=== PATIENT | male | born 1940 | race Caucasian/White ===

== ENCOUNTER 2017-07-08 09:45 | Inpatient (IN) | payer MEDICARE, BC ==
[2017-07-08] MEDS ORDERED: Aspirin 81 MG Tab.Chew PO ONE (09:47)
--- NOTE | 2017-07-08 09:49 | EDM.PDOC ---
ED HPI GENERAL MEDICAL PROBLEM - General Stated Complaint: CHEST PAIN Time Seen by Provider: 07/08/17 09:48 Source of Information: Reports: Patient - History of Present Illness INITIAL COMMENTS - FREE TEXT/NARRATIVE: HISTORY AND PHYSICAL: History of present illness: [Patient presents with history of hypotension in the a.m. he measures his blood pressures at home 70/40 on home equipment today. He D was concerned but went to breakfast with one of his friends he had a syncopal episode of which is had several syncopal episodes over the last 3-5 days. Patient is clinically dehydrated with skin tenting he does not drink any water at home he prefers to drink coffee as well as alcoholic beverages. Currently no fever nausea vomiting diarrhea constipation shortness breath headache dizziness palpitation no bowel or urine symptoms He has had some intermittent chest pain over the last 3 days and generalized weakness which improved with fluid hydration ] Review of systems: As per history of present illness and below otherwise all systems reviewed and negative. Past medical history: As per history of present illness and as reviewed below otherwise noncontributory. Surgical history: As per history of present illness and as reviewed below otherwise noncontributory. Social history: No reported history of drug or alcohol abuse. Family history: As per history of present illness and as reviewed below otherwise noncontributory. Physical exam: HEENT: Atraumatic, normocephalic, pupils reactive, negative for conjunctival pallor or scleral icterus, mucous membranes moist, throat clear, neck supple, nontender, trachea midline. Lungs: Clear to auscultation, breath sounds equal bilaterally, chest nontender. Heart: S1S2, regular, negative for clicks, rubs, or JVD. Abdomen: Soft, nondistended, nontender. Negative for masses or hepatosplenomegaly. Negative for costovertebral tenderness. Pelvis: Stable nontender. Genitourinary: Deferred. Rectal: Deferred. Extremities: Atraumatic, negative for cords or calf pain. Neurovascular unremarkable. Neuro: Awake, alert, oriented. Cranial nerves II through XII unremarkable. Cerebellum unremarkable. Motor and sensory unremarkable throughout. Exam nonfocal. Diagnostics: []Lab as below EKG Chest [address] no contrast abd/pelvis w contrast Therapeutics: []Aspirin 324 mg chewable 1 L normal saline bolus Impression: dehydration syncopal episodes on doxasosin []abdominal pain h/o prostate ca -followed by urology in [place] ...dr. Tomas Definitive disposition and diagnosis as appropriate pending reevaluation and review of above. Epigastric Pain Score (Numeric/FACES): 5 - Related Data Allergies Allergy/AdvReac Type Severity Reaction Status Date / Time codeine Allergy Nausea and Verified 07/08/17 10:12 Vomiting Home Meds: Home Meds Omeprazole 40 mg PO DAILY 08/08/15 [History] Albuterol Sulfate [Proair Hfa] 2 inhalation PO ASDIRECTED PRN 09/20/15 [History] Aspirin [Adult Low Dose Aspirin EC] 81 mg PO DAILY 09/20/15 [History] Finasteride 5 mg PO DAILY 07/08/17 [History] Tamsulosin HCl 0.4 mg PO DAILY 07/08/17 [History] Past Medical History Cardiovascular History: Reports: Other (See Below) Other Cardiovascular History: pericarditis Respiratory History: Reports: Asthma Other Respiratory History: uses inhaler Gastrointestinal History: Reports: GERD, Hiatal Hernia Genitourinary History: Reports: Prostate Disorder Other Genitourinary History: hx of BPH Musculoskeletal History: Reports: Back Pain, Chronic Oncologic (Cancer) History: Reports: Basal Cell Carcinoma - Past Surgical History Cardiovascular Surgical History: Reports: Percutaneous Transluminal Angioplasty Dermatological Surgical History: Reports: Other (See Below) Social & Family History - Tobacco Use Smoking Status *Q: Never Smoker Years of Tobacco use: 20 Used Tobacco, but Quit: Yes - Recreational Drug Use Recreational Drug Use: No Drug Use in Last 12 Months: No ED ROS GENERAL - Review of Systems Review Of Systems: ROS reveals no pertinent complaints other than HPI. ED EXAM, GENERAL - Physical Exam Exam: See Below Course - Vital Signs Last Recorded V/S: Last Vital Signs Temp 36.7 C 07/08/17 11:19 Pulse 56 L 07/08/17 11:19 Resp 14 07/08/17 11:19 BP 142/84 H 07/08/17 11:19 Pulse Ox 96 07/08/17 11:19 Orthostatic Blood Pressure [ 170/84 Standing] Orthostatic Blood Pressure [ 162/87 Sitting] Orthostatic Blood Pressure [ 156/81 Supine] - Orders/Labs/Meds Orders: Active Orders 24 hr Category Date Time Status EKG Documentation Completion [RC] STAT Care 07/08/17 09:47 Active Orthostatic Vital Signs [RC] ASDIRECTED Care 07/08/17 10:53 Active Sodium Chloride 0.9% [Normal Saline] 1,000 ml Med 07/08/17 11:15 Active IV ASDIRECTED Medication Orders Sodium Chloride (Normal Saline) 1,000 mls @ 999 mls/hr IV ASDIRECTED JO Last Admin: 07/08/17 11:15 Dose: 999 mls/hr Labs: Laboratory Tests 07/08/17 07/08/17 07/08/17 Range/Units 09:56 09:56 09:56 WBC 5.49 (4.0-11.0) K/uL RBC 5.21 (4.50-5.90) M/uL Hgb 16.5 (13.0-17.0) g/dL Hct 48.0 (38.0-50.0) % MCV 92.1 (80.0-98.0) fL MCH 31.7 (27.0-32.0) pg MCHC 34.4 (31.0-37.0) g/dL RDW Std Deviation 45.4 (28.0-62.0) fl RDW Coeff of María 14 (11.0-15.0) % Plt Count 161 (150-400) K/uL MPV 10.80 (7.40-12.00) fL Neut % (Auto) 40.8 L (48.0-80.0) % Lymph % (Auto) 45.5 H (16.0-40.0) % [place] % (Auto) 11.1 (0.0-15.0) % Eos % (Auto) 2.2 (0.0-7.0) % Baso % (Auto) 0.4 (0.0-1.5) % Neut # (Auto) 2.2 (1.4-5.7) K/uL Lymph # (Auto) 2.5 H (0.6-2.4) K/uL [place] # (Auto) 0.6 (0.0-0.8) K/uL Eos # (Auto) 0.1 (0.0-0.7) K/uL Baso # (Auto) 0.0 (0.0-0.1) K/uL Nucleated RBC % 0.0 /100WBC Nucleated RBCs # 0 K/uL INR 1.00 (0.86-1.11) D-Dimer, Quantitative 0.48 (0.0-0.52) mg/LFEU Sodium 140 (136-146) mmol/L Potassium 4.0 (3.5-5.1) mmol/L Chloride 107 (98-110) mmol/L Carbon Dioxide 23 (21-31) mmol/L BUN 20 (6.0-23.0) mg/dL Creatinine 1.3 (0.6-1.5) mg/dL Est Cr Clr Drug Dosing 57.08 mL/min Estimated GFR (MDRD) 53.8 ml/min Glucose 99 (60-110) mg/dL Calcium 9.3 (8.8-10.8) mg/dL Total Bilirubin 0.8 (0.1-1.5) mg/dL AST 23 (5-40) IU/L ALT 17 (8-54) IU/L Alkaline Phosphatase 83 (40-150) Creatine Kinase 101 (9-236) IU/L CK-MB (CK-2) 1.6 (0-6.6) ng/ml Troponin I < 0.10 (0.0-0.29) NG/ML B-Natriuretic Peptide (<100) PG/ML Total Protein 7.3 (6.0-8.0) g/dL Albumin 4.0 (3.4-4.8) g/dL Globulin 3.3 (2.0-3.5) g/dL Albumin/Globulin Ratio 1.2 L (1.3-2.8) Amylase 63 (10-90) U/L Lipase 40 (7-80) U/L Urine Color Urine Appearance Urine pH (5.0-8.0) Ur Specific [place] (1.001-1.035) Urine Protein (NEGATIVE) mg/dL Urine Glucose (UA) (NEGATIVE) mg/dL Urine Ketones (NEGATIVE) mg/dL Urine Occult Blood (NEGATIVE) Urine Nitrite (NEGATIVE) Urine Bilirubin (NEGATIVE) Urine Urobilinogen (<2.0) EU/dL Ur Leukocyte Esterase (NEGATIVE) Urine RBC (0-2/HPF) Urine WBC (0-5/HPF) Ur Epithelial Cells (NONE-FEW) Urine Bacteria (NEGATIVE) Urine Mucus (NONE-MOD) 07/08/17 07/08/17 Range/Units 09:56 11:40 WBC (4.0-11.0) K/uL RBC (4.50-5.90) M/uL Hgb (13.0-17.0) g/dL Hct (38.0-50.0) % MCV (80.0-98.0) fL MCH (27.0-32.0) pg MCHC (31.0-37.0) g/dL RDW Std Deviation (28.0-62.0) fl RDW Coeff of María (11.0-15.0) % Plt Count (150-400) K/uL MPV (7.40-12.00) fL Neut % (Auto) (48.0-80.0) % Lymph % (Auto) (16.0-40.0) % [place] % (Auto) (0.0-15.0) % Eos % (Auto) (0.0-7.0) % Baso % (Auto) (0.0-1.5) % Neut # (Auto) (1.4-5.7) K/uL Lymph # (Auto) (0.6-2.4) K/uL [place] # (Auto) (0.0-0.8) K/uL Eos # (Auto) (0.0-0.7) K/uL Baso # (Auto) (0.0-0.1) K/uL Nucleated RBC % /100WBC Nucleated RBCs # K/uL INR (0.86-1.11) D-Dimer, Quantitative (0.0-0.52) mg/LFEU Sodium (136-146) mmol/L Potassium (3.5-5.1) mmol/L Chloride (98-110) mmol/L Carbon Dioxide (21-31) mmol/L BUN (6.0-23.0) mg/dL Creatinine (0.6-1.5) mg/dL Est Cr Clr Drug Dosing mL/min Estimated GFR (MDRD) ml/min Glucose (60-110) mg/dL Calcium (8.8-10.8) mg/dL Total Bilirubin (0.1-1.5) mg/dL AST (5-40) IU/L ALT (8-54) IU/L Alkaline Phosphatase (40-150) Creatine Kinase (9-236) IU/L CK-MB (CK-2) (0-6.6) ng/ml Troponin I (0.0-0.29) NG/ML B-Natriuretic Peptide 85 (<100) PG/ML Total Protein (6.0-8.0) g/dL Albumin (3.4-4.8) g/dL Globulin (2.0-3.5) g/dL Albumin/Globulin Ratio (1.3-2.8) Amylase (10-90) U/L Lipase (7-80) U/L Urine Color YELLOW Urine Appearance CLEAR Urine pH 6.0 (5.0-8.0) Ur Specific [place] 1.015 (1.001-1.035) Urine Protein NEGATIVE (NEGATIVE) mg/dL Urine Glucose (UA) NEGATIVE (NEGATIVE) mg/dL Urine Ketones NEGATIVE (NEGATIVE) mg/dL Urine Occult Blood NEGATIVE (NEGATIVE) Urine Nitrite NEGATIVE (NEGATIVE) Urine Bilirubin NEGATIVE (NEGATIVE) Urine Urobilinogen 0.2 (<2.0) EU/dL Ur Leukocyte Esterase NEGATIVE (NEGATIVE) Urine RBC 0-1 (0-2/HPF) Urine WBC 0-2 (0-5/HPF) Ur Epithelial Cells RARE (NONE-FEW) Urine Bacteria RARE (NEGATIVE) Urine Mucus MODERATE (NONE-MOD) Meds: Medications Generic Name Dose Route Start Last Admin Trade Name Freq PRN Reason Stop Dose Admin Sodium Chloride 1,000 mls @ 999 mls/hr 07/08/17 11:15 07/08/17 11:15 Normal Saline IV 999 mls/hr ASDIRECTED JO Administration Discontinued Medications Generic Name Dose Route Start Last Admin Trade Name Fredayan PRN Reason Stop Dose Admin Aspirin 324 mg 07/08/17 09:47 07/08/17 10:08 Aspirin PO 07/08/17 09:48 324 mg ONETIME ONE Administration Sodium Chloride 1,000 mls @ 999 mls/hr 07/08/17 09:47 07/08/17 11:10 Normal Saline IV 07/08/17 10:47 Infused STAT ONE Infusion Iopamidol 75 ml 07/08/17 13:12 07/08/17 13:12 Isovue Multipack-370 (76%) IVPUSH 07/08/17 13:13 75 ml ONETIME STA Administration Departure - Departure Time of Disposition: 13:52 Disposition: Admitted As Inpatient 68 Condition: Fair Clinical Impression: Syncope and collapse - Discharge Information Referrals: Armando Dunn MD [Primary Care Provider] - - My Orders Last 24 Hours: My Active Orders 07/08/17 09:47 EKG Documentation Completion [RC] STAT 07/08/17 10:53 Orthostatic Vital Signs [RC] ASDIRECTED 07/08/17 11:15 Sodium Chloride 0.9% [Normal Saline] 1,000 ml IV ASDIRECTED - Assessment/Plan Last 24 Hours: My Active Orders 07/08/17 09:47 EKG Documentation Completion [RC] STAT 07/08/17 10:53 Orthostatic Vital Signs [RC] ASDIRECTED 07/08/17 11:15 Sodium Chloride 0.9% [Normal Saline] 1,000 ml IV ASDIRECTED
[2017-07-08] MEDS: Sodium Chloride 0.9% 1,000 ML IV ONE ×2 (10:09→11:15)
[2017-07-08 10:41] LABS: CHLORIDE,CL 107 mmol/L (98-110); SODIUM,NA 140 mmol/L (136-146)
--- NOTE | 2017-07-08 10:59 | CR ---
EXAMINATION: Portable chest radiograph. HISTORY: Pain. FINDINGS: The trachea is midline. The cardiomediastinal silhouette is within normal limits. No pulmonary infilt rates, effusions or pneumothorax. Mild chronic interstitial prominence. Osseous structures appear unremarkable. IMPRESSION: No acute cardiopulmonary process.
[2017-07-08] MEDS ORDERED: Sodium Chloride 0.9% 1,000 ML IV SCH ×2 (11:15→14:00)
[2017-07-08] MEDS ORDERED: Iopamidol 755 MG/ML 500 ML Multipack Bottle IVPUSH STA (13:12)
--- NOTE | 2017-07-08 13:25 | CT ---
EXAMINATION: Non contrast CT head. Coronal and sagittal reformats. HISTORY: Pain FINDINGS: No evidence of intra or extra axial hemorrhage, mass, midline shift, hydrocephalus or edema. Early g eneralized atrophy. No hypoattenuation changes in the major vascular territories to suggest acute infarct. No abnormal intracranial calcifications are detected. No evidence of substantial vascular calcificat ions. Trace mucosal thickening within the mastoid air cells. The mastoid air cells are clear. Orbits and gl obes are symmetric. Pituitary fossa appears unremarkable. Calvarium is intact. No evidence of skull fracture. IMPRESSION: No acute intracranial findings.
--- NOTE | 2017-07-08 13:30 | CT ---
CT of the abdomen and pelvis with contrast. HISTORY: Pain TECHNIQUE: Axial CT images were obtained of the abdomen and pelvis following administration of 75 mL of Isovue-370 without complication. Coronal and sagittal reconstructions obtained. FINDINGS: The lung bases are clear, no pleural effusion. Mild dependent atelectasis. The liver, spleen, adrenal glands, and pancreas appear normal. The gallbladder is normal. No bulky re troperitoneal lymphadenopathy or abdominal ascites. The kidneys enhance and function symmetrically without evidence of obstructive uropathy. The large and small bowel are normal in caliber without evidence of obstruction. The appendix appears normal. No focal pericolonic inflammation or stranding. The urinary bladder is mostly decompressed. No bulky pelvic lymphadenopathy or free pelvic fluid. There is a tiny fat-containing right inguinal h ernia. No suspicious osseous abnormalities identified. IMPRESSION: 1. No acute findings demonstrated within the abdomen or pelvis. 2. Tiny fat-containing right inguinal hernia.
[2017-07-08] MEDS ORDERED: Ondansetron 4 MG Tab.DIS PO PRN (14:47)
[2017-07-08] MEDS ORDERED: Albuterol/Ipratropium 3.0-0.5 MG/3 ML Neb Soln NEB PRN (14:47)
[2017-07-08] MEDS ORDERED: Albuterol 8 GM Inhaler INH PRN (14:51)
--- NOTE | 2017-07-08 15:06 | PCM.HP ---
H&P History of Present Illness - General Date of Service: 07/08/17 Admit Problem/Dx: Syncope, hypotension Source of Information: Patient History Limitations: Reports: No Limitations - History of Present Illness Initial Comments - Free Text/Narative: 77-year-old male with a past medical history of prostate cancer, pericarditis, asthma, GERD, basal cell carcinoma and chronic back pain that is being admitted with multiple syncopal episodes and hypotension. Patient was at breakfast this morning and experienced a witnessed syncopal episode. He was sitting at a table at a restaurant and his friends told him that he slowly fell over and lost consciousness. He did his head on the table. He denies any head pain at this time. He notes that over the past 3-5 days he has had multiple syncopal episodes that have been witnessed. He was recently started on Flomax for his enlarged prostate and problems with urination and he believes that this may be causing his hypotension. His blood pressure this morning when he checked it was 70/40. He does check his blood pressure at home on a daily basis. Patient has no history of seizures. When he does have these syncopal episodes he does not lose consciousness for a long period of time. He did not lose control of his bowel or bladder. He presented to the emergency room this afternoon he was having mild chest pain. He notes that this has resolved. He is undergone 2 cardiac catheterizations in the past with the last one being in April and everything was normal. He does take a daily aspirin. Patient does have a prior history of pericarditis. Patient does note that he consumes mostly coffee and alcohol on a daily basis. He drinks very little water. Patient currently denies any headaches, dizziness, chest pain, palpitations, shortness of breath, wheezing, cough, abdominal pain, nausea, vomiting, constipation, diarrhea, fever. He hasn't tolerating oral intake ER course: CBC, INR, d-dimer, BNP, CMP, initial troponin, CK, amylase, lipase, urinalysis, abdominal CT, head CT, chest x-ray were all unremarkable. Patient did receive a bolus of 1 L 3 and his blood pressure upon presenting to the [facility] floor is 142/84. Orthostatic vital signs were unremarkable. Patient is 96% on room air. Respiratory rate is 14. Epigastric Pain Score (Numeric/FACES): 5 - Related Data Allergies/Adverse Reactions: Allergies Allergy/AdvReac Type Severity Reaction Status Date / Time codeine Allergy Nausea and Verified 07/08/17 10:12 Vomiting Home Medications: Home Meds Omeprazole 40 mg PO DAILY 08/08/15 [History] Albuterol Sulfate [Proair Hfa] 2 inhalation PO ASDIRECTED PRN 09/20/15 [History] Aspirin [Adult Low Dose Aspirin EC] 81 mg PO DAILY 09/20/15 [History] Finasteride 5 mg PO DAILY 07/08/17 [History] Tamsulosin HCl 0.4 mg PO DAILY 07/08/17 [History] Past Medical History Cardiovascular History: Reports: Other (See Below) Other Cardiovascular History: pericarditis Respiratory History: Reports: Asthma Other Respiratory History: uses inhaler Gastrointestinal History: Reports: GERD, Hiatal Hernia Genitourinary History: Reports: Prostate Disorder Other Genitourinary History: hx of BPH Musculoskeletal History: Reports: Back Pain, Chronic Oncologic (Cancer) History: Reports: Basal Cell Carcinoma - Infectious Disease History Infectious Disease History: Reports: Chicken Pox, Measles, Mumps - Past Surgical History Cardiovascular Surgical History: Reports: Percutaneous Transluminal Angioplasty Dermatological Surgical History: Reports: Other (See Below) Social & Family History - Family History Family Medical History: Noncontributory - Tobacco Use Smoking Status *Q: Never Smoker Years of Tobacco use: 20 Used Tobacco, but Quit: Yes Month Tobacco Last Used: unknown - Recreational Drug Use Recreational Drug Use: No Drug Use in Last 12 Months: No H&P Review of Systems - Review of Systems: Review Of Systems: See Below General: Reports: No Symptoms HEENT: Reports: No Symptoms Pulmonary: Reports: No Symptoms Cardiovascular: Reports: Chest Pain, Lightheadedness, Syncope Gastrointestinal: Reports: No Symptoms Genitourinary: Reports: No Symptoms Musculoskeletal: Reports: No Symptoms Skin: Reports: No Symptoms Psychiatric: Reports: No Symptoms Neurological: Reports: No Symptoms Hematologic/Lymphatic: Reports: No Symptoms Immunologic: Reports: No Symptoms Exam - Exam Exam: See Below - Vital Signs Vital Signs: Last Vital Signs Temp 98.0 F 07/08/17 14:20 Pulse 65 07/08/17 14:20 Resp 18 07/08/17 14:20 BP 158/95 H 07/08/17 14:20 Pulse Ox 96 07/08/17 14:20 Weight: 193 lb 1.999 oz - Exam Quality Assessment: DVT Prophylaxis (SCDs, Lovenox.) General: Alert, Oriented, 4 HEENT: Conjunctiva Clear, Hearing Intact, Mucosa Moist & [place], Nares Patent, Normal Nasal Septum Neck: Supple, Trachea Midline, 2 Lungs: Clear to Auscultation, Normal Respiratory Effort Cardiovascular: Regular Rate, Regular Rhythm GI/Abdominal Exam: Normal Bowel Sounds, Soft, Non-Tender, No Organomegaly, No Distention, No Abnormal Bruit, No Mass Extremities: Normal Inspection, Normal Range of Motion, Non-Tender, No Pedal Edema, Normal Capillary Refill Peripheral Pulses: 2+: Radial (L), Radial (R), Posterior Tibial (L), Posterior Tibial (R) Skin: Warm, Dry, Intact Neuro Extensive - Mental Status: Alert, Oriented x3, Normal Mood/Affect, Normal Cognition Psychiatric: Alert, Normal Affect, Normal Mood - Patient Data Result Diagrams: 07/08/17 09:56 07/08/17 09:56 *Q Meaningful Use (ADM) - VTE *Q VTE Criteria *Q: - Stroke *Q Stroke Criteria *Q: - AMI *Q AMI Criteria *Q: - Problem List (1) Syncope and collapse SNOMED Code(s): 056588235 ICD Code: R55 - SYNCOPE AND COLLAPSE Status: Acute Current Visit: Yes (2) Unstable angina SNOMED Code(s): 2600942 ICD Code: I20.0 - UNSTABLE ANGINA Status: Acute Current Visit: No Problem List Initiated/Reviewed/Updated: Yes Orders Last 24hrs: Active Orders 24 hr Category Date Time Status Antiembolic Devices [RC] PER UNIT ROUTINE Care 07/08/17 14:50 Ordered Cardiac Monitoring [RC] CONTINUOUS Care 07/08/17 14:48 Ordered Height and Weight [RC] DAILY Care 07/08/17 14:47 Ordered Intake and Output [RC] QSHIFT Care 07/08/17 14:47 Ordered Notify Provider Vital Signs [RC] ASDIRECTED Care 07/08/17 14:48 Ordered Oxygen Therapy [RC] PRN Care 07/08/17 14:47 Ordered Pulse Oximetry [RC] PRN Care 07/08/17 14:47 Ordered RT Aerosol Therapy [RC] ASDIRECTED Care 07/08/17 14:50 Ordered Up With Assistance [RC] ASDIRECTED Care 07/08/17 14:47 Ordered VTE/DVT Education [RC] PER UNIT ROUTINE Care 07/08/17 14:47 Ordered Vital Signs [RC] Q4H Care 07/08/17 14:47 Ordered [place] [employer] Diet [DIET] Diet 07/08/17 Breakfast Ordered CV Carotid Duplex Comp [US] Routine Exams 07/08/17 14:47 Ordered Echo 2D wo Cont [US] Routine Exams 07/08/17 14:52 Ordered BASIC METABOLIC PANEL,BMP [CHEM] AM Lab 07/09/17 05:11 Ordered BASIC METABOLIC PANEL,BMP [CHEM] AM Lab 07/10/17 05:11 Ordered CBC WITH AUTO DIFF [HEME] AM Lab 07/09/17 05:11 Ordered CBC WITH AUTO DIFF [HEME] AM Lab 07/10/17 05:11 Ordered GLYCOSYLATED HEMOGLOBIN,HGBA1C [CHEM] Routine Lab 07/08/17 14:47 Ordered LIPID PANEL [CHEM] Routine Lab 07/08/17 14:47 Ordered Acetaminophen [Tylenol] Med 07/08/17 14:47 Ordered 650 mg PO Q4H PRN Albuterol [Proventil HFA] Med 07/08/17 14:51 Ordered 2 inhalation INH ASDIRECTED PRN Albuterol/Ipratropium [DuoNeb 3.0-0.5 MG/3 ML] Med 07/08/17 14:47 Ordered 3 ml NEB Q4HRRT PRN Aspirin [Halfprin] Med 07/09/17 09:00 Ordered 81 mg PO DAILY Enoxaparin [Lovenox] Med 07/08/17 15:00 Ordered 40 mg SUBCUT DAILY Finasteride [Proscar] Med 07/09/17 09:00 Ordered 5 mg PO DAILY Omeprazole Med 07/09/17 09:00 Ordered 40 mg PO DAILY Ondansetron [Zofran ODT] Med 07/08/17 14:47 Ordered 4 mg PO Q4H PRN Sequential Compression Device [OM.PC] Per Unit Routine Oth 07/08/17 14:48 Ordered Resuscitation Status Routine Resus Stat 07/08/17 14:47 Ordered Medication Orders Acetaminophen (Tylenol) 650 mg PO Q4H PRN PRN Reason: Pain (Mild 1-3)/fever Albuterol (Proventil Hfa) gm INH ASDIRECTED PRN PRN Reason: Dyspnea Albuterol/Ipratropium (Duoneb 3.0-0.5 Mg/3 Ml) 3 ml NEB Q4HRRT PRN PRN Reason: Shortness Of Breath/wheezing Aspirin (Halfprin) 81 mg PO DAILY [facility] Enoxaparin Sodium (Lovenox) 40 mg SUBCUT DAILY [facility] Finasteride (Proscar) 5 mg PO DAILY [facility] Sodium Chloride (Normal Saline) 1,000 mls @ 999 mls/hr IV ASDIRECTED [facility] Last Admin: 07/08/17 11:15 Dose: 999 mls/hr Sodium Chloride (Normal Saline) 1,000 mls @ 125 mls/hr IV STAT JO Omeprazole (Omeprazole) 40 mg PO DAILY [facility] Ondansetron HCl (Zofran Odt) 4 mg PO Q4H PRN PRN Reason: nausea, able to take PO Assessment/Plan Comment:: 77-year-old male being admitted with multiple syncopal episodes and hypotension. Patient also has chest pain. #1. Syncope with hypotension: -This may be related to the patient's Flomax. This will be held. -Patient received normal saline bolus 1 L 3 in the ER. Blood pressures at 142/ 84. We will hold fluids at this time as the patient is tolerating oral intake and voiding appropriately. If patient does become hypotensive we can initiate fluid resuscitation. -Lipid panel, echocardiogram, carotid ultrasound are pending. -Patient will be placed on telemetry. #2. Chest pain: -Initial troponin was negative. We'll trend his troponins over the next 6 hours 2. -Continue with aspirin. -We'll start the patient on Lipitor. All home medications have been restarted apart from Flomax. Reflexes: SCDs, Lovenox. Disposition: 1-2 days pending improvement.
[2017-07-08] MEDS ORDERED: Pneumococcal Polyvalent-23 Vaccine 0.5 ML SDV IM ONE (15:13)
[2017-07-08] MEDS: Enoxaparin 40 MG/0.4 ML Syringe SUBCUT SCH (15:40)
[2017-07-08] MEDS: atorvaSTATin 10 MG Tab PO SCH (21:10)
[2017-07-09] MEDS: Acetaminophen 325 MG Tab PO PRN ×2 (04:35→08:56)
[2017-07-09 05:49] LABS: CHLORIDE,CL 111 mmol/L (98-110); SODIUM,NA 141 mmol/L (136-146)
[2017-07-09] MEDS: Omeprazole 20 MG Cap.CR PO SCH (06:42)
[2017-07-09] MEDS: Aspirin 81 MG Tab.EC PO SCH (08:56)
[2017-07-09] MEDS: Enoxaparin 40 MG/0.4 ML Syringe SUBCUT SCH (08:57)
--- NOTE | 2017-07-09 08:59 | US ---
EXAMINATION: Carotid US with castellon scale and duplex imaging. HISTORY: Syncope FINDINGS: Ultrasound examination of bilateral cervical carotid arteries was performed using castellon scale and dupl ex imaging. There is scattered atheromatous plaque within the carotid arteries bilaterally most prom inent within the bulbs. Antegrade flow is noted within the vertebrals. These are the peak velocities in cm per second (systole), right and left respectively, by a comma: CCA (common carotid artery) - 141, 114 ICA (internal carotid artery) - 139, 133 ECA (External carotid artery) - 92, 93 ICA/CCA systolic ratio Right - 1.5 Left - 1.3 IMPRESSION: There is approximately between 50 and 69% stenosis of the internal carotid arteries bilaterally.
[2017-07-09] MEDS ORDERED: Finasteride 5 MG Tab PO SCH (09:00)
[2017-07-09] MEDS: Bisacodyl 10 MG Supp RECTAL SCH (10:15)
[2017-07-09] MEDS ORDERED: Sodium Chloride 0.9% 1,000 ML IV ONE (10:54)
--- NOTE | 2017-07-09 13:36 | PCM.PN ---
- General Info Subjective Update: Denies any episodes of syncope, chest pain overnight. Troponins were trended which have been negative 3. Orthostatic vital signs were ordered secondary to patient's hypotension which revealed orthostatic hypotension. He denies any chest pain, fever, nausea or vomiting. He has no complaints. - Review of Systems General: Reports: Other (See history of present illness) - Patient Data Vitals - Most Recent: Last Vital Signs Temp 36.9 C 07/09/17 11:57 Pulse 55 L 07/09/17 11:57 Resp 18 07/09/17 11:57 BP 135/71 07/09/17 11:57 Pulse Ox 100 07/09/17 11:57 Orthostatic Blood Pressure [ 147/92 Standing] Orthostatic Blood Pressure [ 145/87 Sitting] Orthostatic Blood Pressure [ 153/78 Supine] Weight - Most Recent: 87.6 kg I&O - Last 24 Hours: Intake & Output 07/08/17 07/09/17 07/09/17 22:59 06:59 14:59 Intake Total 420 Output Total 1150 Balance -730 Lab Results Last 24 Hours: Laboratory Results - last 24 hr 07/08/17 07/08/17 07/09/17 Range/Units 16:00 21:54 04:58 WBC 5.05 (4.0-11.0) K/uL RBC 4.64 (4.50-5.90) M/uL Hgb 14.7 (13.0-17.0) g/dL Hct 42.6 (38.0-50.0) % MCV 91.8 (80.0-98.0) fL MCH 31.7 (27.0-32.0) pg MCHC 34.5 (31.0-37.0) g/dL RDW Std Deviation 44.7 (28.0-62.0) fl RDW Coeff of María 14 (11.0-15.0) % Plt Count 139 L (150-400) K/uL MPV 10.50 (7.40-12.00) fL Neut % (Auto) 46.5 L (48.0-80.0) % Lymph % (Auto) 38.4 (16.0-40.0) % [place] % (Auto) 11.5 (0.0-15.0) % Eos % (Auto) 3.2 (0.0-7.0) % Baso % (Auto) 0.4 (0.0-1.5) % Neut # (Auto) 2.4 (1.4-5.7) K/uL Lymph # (Auto) 1.9 (0.6-2.4) K/uL [place] # (Auto) 0.6 (0.0-0.8) K/uL Eos # (Auto) 0.2 (0.0-0.7) K/uL Baso # (Auto) 0.0 (0.0-0.1) K/uL Nucleated RBC % 0.0 /100WBC Nucleated RBCs # 0 K/uL Sodium (136-146) mmol/L Potassium (3.5-5.1) mmol/L Chloride (98-110) mmol/L Carbon Dioxide (21-31) mmol/L BUN (6.0-23.0) mg/dL Creatinine (0.6-1.5) mg/dL Est Cr Clr Drug Dosing mL/min Estimated GFR (MDRD) ml/min Glucose (60-110) mg/dL POC Glucose (60-110) mg/dL Calcium (8.8-10.8) mg/dL Troponin I < 0.10 < 0.10 (0.0-0.29) NG/ML 07/09/17 07/09/17 Range/Units 04:58 05:47 WBC (4.0-11.0) K/uL RBC (4.50-5.90) M/uL Hgb (13.0-17.0) g/dL Hct (38.0-50.0) % MCV (80.0-98.0) fL MCH (27.0-32.0) pg MCHC (31.0-37.0) g/dL RDW Std Deviation (28.0-62.0) fl RDW Coeff of María (11.0-15.0) % Plt Count (150-400) K/uL MPV (7.40-12.00) fL Neut % (Auto) (48.0-80.0) % Lymph % (Auto) (16.0-40.0) % [place] % (Auto) (0.0-15.0) % Eos % (Auto) (0.0-7.0) % Baso % (Auto) (0.0-1.5) % Neut # (Auto) (1.4-5.7) K/uL Lymph # (Auto) (0.6-2.4) K/uL [place] # (Auto) (0.0-0.8) K/uL Eos # (Auto) (0.0-0.7) K/uL Baso # (Auto) (0.0-0.1) K/uL Nucleated RBC % /100WBC Nucleated RBCs # K/uL Sodium 141 (136-146) mmol/L Potassium 4.2 (3.5-5.1) mmol/L Chloride 111 H (98-110) mmol/L Carbon Dioxide 24 (21-31) mmol/L BUN 15 (6.0-23.0) mg/dL Creatinine 1.0 (0.6-1.5) mg/dL Est Cr Clr Drug Dosing 74.24 mL/min Estimated GFR (MDRD) > 60.0 ml/min Glucose 86 (60-110) mg/dL POC Glucose 78 (60-110) mg/dL Calcium 8.5 L (8.8-10.8) mg/dL Troponin I (0.0-0.29) NG/ML Med Orders - Current: Current Medications Acetaminophen (Tylenol) 650 mg PO Q4H PRN PRN Reason: Pain (Mild 1-3)/fever Last Admin: 07/09/17 08:56 Dose: 650 mg Albuterol (Ventolin Hfa) 0 gm INH Q4H PRN PRN Reason: Dyspnea Albuterol/Ipratropium (Duoneb 3.0-0.5 Mg/3 Ml) 3 ml NEB Q4HRRT PRN PRN Reason: Shortness Of Breath/wheezing Aspirin (Halfprin) 81 mg PO DAILY [facility] Last Admin: 07/09/17 08:56 Dose: 81 mg Atorvastatin Calcium (Lipitor) 10 mg PO BEDTIME [facility] Last Admin: 07/08/17 21:10 Dose: 10 mg Bisacodyl (Dulcolax) 10 mg RECTAL DAILY [facility] Last Admin: 07/09/17 10:15 Dose: 10 mg Enoxaparin Sodium (Lovenox) 40 mg SUBCUT DAILY [facility] Last Admin: 07/09/17 08:57 Dose: 40 mg Finasteride (Proscar) 5 mg PO DAILY [facility] Last Admin: 07/09/17 08:56 Dose: 5 mg Sodium Chloride (Normal Saline) 1,000 mls @ 125 mls/hr IV STAT [facility] Omeprazole (Omeprazole) 40 mg PO ACBREAKFAST [facility] Last Admin: 07/09/17 06:42 Dose: 40 mg Ondansetron HCl (Zofran Odt) 4 mg PO Q4H PRN PRN Reason: nausea, able to take PO Discontinued Medications Aspirin (Aspirin) 324 mg PO ONETIME ONE Stop: 07/08/17 09:48 Last Admin: 07/08/17 10:08 Dose: 324 mg Sodium Chloride (Normal Saline) 1,000 mls @ 999 mls/hr IV STAT ONE Stop: 07/08/17 10:47 Last Infusion: 07/08/17 11:10 Dose: Infused Sodium Chloride (Normal Saline) 1,000 mls @ 999 mls/hr IV ASDIRECTED [facility] Last Admin: 07/08/17 11:15 Dose: 999 mls/hr Sodium Chloride (Normal Saline) 1,000 mls @ 999 mls/hr IV STAT ONE Stop: 07/09/17 11:54 Last Admin: 07/09/17 11:09 Dose: 999 mls/hr Iopamidol (Isovue Multipack-370 (76%)) 75 ml IVPUSH ONETIME STA Stop: 07/08/17 13:13 Last Admin: 07/08/17 13:12 Dose: 75 ml Pneumococcal Polyvalent Vaccine (Pneumovax 23) 0.5 ml IM .ONCE ONE Stop: 07/08/17 15:14 Last Admin: 07/09/17 11:52 Dose: 0.5 ml - Exam General: Alert, Oriented Lungs: Clear to Auscultation, Normal Respiratory Effort Cardiovascular: Regular Rate, Regular Rhythm GI/Abdominal Exam: Normal Bowel Sounds, Soft, Non-Tender Extremities: Normal Inspection, Normal Range of Motion, No Pedal Edema, Normal Capillary Refill Skin: Warm, Dry, Intact - Problem List Review Problem List Initiated/Reviewed/Updated: Yes - My Orders Last 24 Hours: My Active Orders 07/09/17 10:02 Orthostatic Vital Signs [RC] ASDIRECTED 07/09/17 10:15 Bisacodyl [Dulcolax] 10 mg RECTAL DAILY 07/09/17 10:54 Orthostatic Vital Signs [RC] ASDIRECTED - Plan Plan:: Assessment: #1. Multiple syncopal episodes at home with no episodes here at the hospital. #2. ACS rule out #3. Orthostatic hypotension Plan: #1. Ultrasound carotids indicates 50-69% stenosis bilaterally. Echocardiogram was obtained and results are pending. He can follow-up on these as an outpatient #2. Troponins have been negative 3. No significant events on telemetry. #3. Finasteride has been discontinued given the possibility of hypotension as the side effect #4. Morning cortisol level has been ordered for potential etiology for his orthostatic hypotension. He did however improve after an IV normal saline bolus was given to him and recheck orthostatics indicates normal blood pressure. #5. Anticipate discharge tomorrow
--- NOTE | 2017-07-09 15:01 | PCM.SN ---
- Free Text/Narrative Note: He has resolution of orthostatic hypotension since IVF bolus earlier today. However, he has had chronic symptoms of light headedness with standing. He has been on finasteride and tamulosin. The tamulosin has been held as it may cause hypotension. I spoke with him today Although he is feeling better, I advised that he should stop the tamulosin and I advised stay in the hospital until tomorrow to further assess his blood pressure. Check orthostatic blood pressure readings in am. Will also check 0800 cortisol level as adrenal insufficiency is a potential cause of hypotension. It is likely that he has some autonomic dysfunction as a cause. Fei Garrison MD
[2017-07-09] MEDS: atorvaSTATin 10 MG Tab PO SCH (20:02)
[2017-07-10] MEDS: Acetaminophen 325 MG Tab PO PRN (04:00)
[2017-07-10 05:25] VITALS: BP 135/78
[2017-07-10] MEDS: Omeprazole 20 MG Cap.CR PO SCH (06:50)
[2017-07-10] MEDS: Aspirin 81 MG Tab.EC PO SCH (08:17)
[2017-07-10] MEDS: Enoxaparin 40 MG/0.4 ML Syringe SUBCUT SCH (08:17)
[2017-07-10] MEDS: Bisacodyl 10 MG Supp RECTAL SCH (08:20)
[2017-07-10 08:46] LABS: CHLORIDE,CL 109 mmol/L (98-110); SODIUM,NA 140 mmol/L (136-146)
--- NOTE | 2017-07-10 11:43 | PCM.DCSUM1 ---
Discharge Summary - Hospital Course Free Text/Narrative:: Admission date: 07/08/2017 Discharge date: 07/10/2017 Admission diagnosis: #1. Syncope #2. Hypotension #3. Chest pain Discharge diagnosis: #1. Chest pain - resolved. ACS ruled out #2. Hypotension - improved #3. History of flomax, finasteride use #4. Carotid artery stenosis Hospital course: This is a 77 year old male that presented to the ER after reporting multiple syncopal episodes along with episodes of intermittent chest pain. The patient was then admitted for syncope and ACS work up. Carotid US indicated 50-69% stenosis bilaterally. Echo report was pending. Troponin for ACS rule out was negative x3. No episodes on telemetry. The patient did not have any syncopal episodes while admitted. Flomax, finasteride were discontinued for concern of possible cause of hypotension. The day before discharge, I got orthostatic vital signs which indicated hypotension. He was held for another day and a morning cortisol was obtained for possible adrenal insufficiency as an etiology. This came back normal. The patient likely has hypotension secondary to the flomax and finasteride. These medications were discontinued. He is to follow up with his PCP within 1 week. Advised to return if he experiences any syncope, chest pain, nausea, lightheadedness, vomiting. Patient agrees to the plan Disposition: home F/U: Dr. Dunn, PCP and Cardiology Dr. Braga Outpatient stress test to be scheduled - Discharge Data Discharge Date: 07/10/17 Discharge Disposition: Home, Self-Care 01 Condition: Good - Patient Instructions Diet: Heart Healthy Diet Activity: As Tolerated Other/Special Instructions: passing out, chest pain, fall. outpatient stress test needed - Discharge Plan Home Medications: Home Meds Omeprazole 40 mg PO DAILY 08/08/15 [History] Albuterol Sulfate [Proair Hfa] 2 inhalation PO ASDIRECTED PRN 09/20/15 [History] Aspirin [Adult Low Dose Aspirin EC] 81 mg PO DAILY 09/20/15 [History] Patient Handouts: Near-Syncope, [id number] Referrals: Williams Braga MD [Physician] - 08/05/17 1:00 pm Armando Dunn MD [Primary Care Provider] - 07/22/17 1:30 pm - Discharge Summary/Plan Comment DC Time >30 min.: No Discharge Summary/Plan Comment: Admission date: 07/08/2017 Discharge date: 07/10/2017 Admission diagnosis: #1. Syncope #2. Hypotension #3. Chest pain Discharge diagnosis: #1. Chest pain - resolved. ACS ruled out #2. Hypotension - improved #3. History of flomax, finasteride use #4. Carotid artery stenosis Hospital course: This is a 77 year old male that presented to the ER after reporting multiple syncopal episodes along with episodes of intermittent chest pain. The patient was then admitted for syncope and ACS work up. Carotid US indicated 50-69% stenosis bilaterally. Echo report was pending. Troponin for ACS rule out was negative x3. No episodes on telemetry. The patient did not have any syncopal episodes while admitted. Flomax, finasteride were discontinued for concern of possible cause of hypotension. The day before discharge, I got orthostatic vital signs which indicated hypotension. He was held for another day and a morning cortisol was obtained for possible adrenal insufficiency as an etiology. This came back normal. The patient likely has hypotension secondary to the flomax and finasteride. These medications were discontinued. He is to follow up with his PCP within 1 week. Advised to return if he experiences any syncope, chest pain, nausea, lightheadedness, vomiting. Patient agrees to the plan Disposition: home F/U: Dr. Dunn, PCP and Cardiology Dr. Braga Outpatient stress test to be scheduled - Patient Data Vitals - Most Recent: Last Vital Signs Temp 36.3 C 07/10/17 08:00 Pulse 59 L 07/10/17 08:00 Resp 19 07/10/17 08:00 BP 135/78 07/10/17 04:00 Pulse Ox 95 07/10/17 08:00 Orthostatic Blood Pressure [ 149/81 Standing] Orthostatic Blood Pressure [ 150/77 Sitting] Orthostatic Blood Pressure [ 146/80 Supine] Weight - Most Recent: 88.995 kg I&O - Last 24 hours: Intake & Output 07/09/17 07/10/17 07/10/17 22:59 06:59 14:59 Intake Total 710 680 400 Output Total 300 700 300 Balance 410 -20 100 Lab Results - Last 24 hrs: Laboratory Results - last 24 hr 07/10/17 07/10/17 07/10/17 Range/Units 08:06 08:06 08:06 WBC 5.06 (4.0-11.0) K/uL RBC 4.83 (4.50-5.90) M/uL Hgb 15.2 (13.0-17.0) g/dL Hct 44.6 (38.0-50.0) % MCV 92.3 (80.0-98.0) fL MCH 31.5 (27.0-32.0) pg MCHC 34.1 (31.0-37.0) g/dL RDW Std Deviation 45.7 (28.0-62.0) fl RDW Coeff of María 14 (11.0-15.0) % Plt Count 131 L (150-400) K/uL MPV 10.80 (7.40-12.00) fL Neut % (Auto) 53.7 (48.0-80.0) % Lymph % (Auto) 34.4 (16.0-40.0) % [place] % (Auto) 9.7 (0.0-15.0) % Eos % (Auto) 2.0 (0.0-7.0) % Baso % (Auto) 0.2 (0.0-1.5) % Neut # (Auto) 2.7 (1.4-5.7) K/uL Lymph # (Auto) 1.7 (0.6-2.4) K/uL [place] # (Auto) 0.5 (0.0-0.8) K/uL Eos # (Auto) 0.1 (0.0-0.7) K/uL Baso # (Auto) 0.0 (0.0-0.1) K/uL Nucleated RBC % 0.0 /100WBC Nucleated RBCs # 0 K/uL Sodium 140 (136-146) mmol/L Potassium 4.0 (3.5-5.1) mmol/L Chloride 109 (98-110) mmol/L Carbon Dioxide 24 (21-31) mmol/L BUN 14 (6.0-23.0) mg/dL Creatinine 1.0 (0.6-1.5) mg/dL Est Cr Clr Drug Dosing 74.24 mL/min Estimated GFR (MDRD) > 60.0 ml/min Glucose 111 H (60-110) mg/dL Calcium 8.5 L (8.8-10.8) mg/dL Cortisol 8.4 (7.9-17.3) ug/dL Med Orders - Current: Current Medications Discontinued Medications Acetaminophen (Tylenol) 650 mg PO Q4H PRN PRN Reason: Pain (Mild 1-3)/fever Last Admin: 07/10/17 04:00 Dose: 650 mg Albuterol (Ventolin Hfa) 0 gm INH Q4H PRN PRN Reason: Dyspnea Albuterol/Ipratropium (Duoneb 3.0-0.5 Mg/3 Ml) 3 ml NEB Q4HRRT PRN PRN Reason: Shortness Of Breath/wheezing Aspirin (Aspirin) 324 mg PO ONETIME ONE Stop: 07/08/17 09:48 Last Admin: 07/08/17 10:08 Dose: 324 mg Aspirin (Halfprin) 81 mg PO DAILY [facility] Last Admin: 07/10/17 08:17 Dose: 81 mg Atorvastatin Calcium (Lipitor) 10 mg PO BEDTIME [facility] Last Admin: 07/09/17 20:02 Dose: 10 mg Bisacodyl (Dulcolax) 10 mg RECTAL DAILY [facility] Last Admin: 07/10/17 08:20 Dose: Not Given Enoxaparin Sodium (Lovenox) 40 mg SUBCUT DAILY [facility] Last Admin: 07/10/17 08:17 Dose: 40 mg Finasteride (Proscar) 5 mg PO DAILY [facility] Last Admin: 07/09/17 08:56 Dose: 5 mg Sodium Chloride (Normal Saline) 1,000 mls @ 999 mls/hr IV STAT ONE Stop: 07/08/17 10:47 Last Infusion: 07/08/17 11:10 Dose: Infused Sodium Chloride (Normal Saline) 1,000 mls @ 999 mls/hr IV ASDIRECTED [facility] Last Admin: 07/08/17 11:15 Dose: 999 mls/hr Sodium Chloride (Normal Saline) 1,000 mls @ 125 mls/hr IV STAT [facility] Sodium Chloride (Normal Saline) 1,000 mls @ 999 mls/hr IV STAT ONE Stop: 07/09/17 11:54 Last Admin: 07/09/17 11:09 Dose: 999 mls/hr Iopamidol (Isovue Multipack-370 (76%)) 75 ml IVPUSH ONETIME STA Stop: 07/08/17 13:13 Last Admin: 07/08/17 13:12 Dose: 75 ml Omeprazole (Omeprazole) 40 mg PO ACBREAKFAST [facility] Last Admin: 07/10/17 06:50 Dose: 40 mg Ondansetron HCl (Zofran Odt) 4 mg PO Q4H PRN PRN Reason: nausea, able to take PO Pneumococcal Polyvalent Vaccine (Pneumovax 23) 0.5 ml IM .ONCE ONE Stop: 07/08/17 15:14 Last Admin: 07/09/17 11:52 Dose: 0.5 ml *Q Meaningful Use (DIS) - VTE *Q VTE Criteria *Q: - Stroke *Q Stroke Criteria *Q: - AMI *Q AMI Criteria *Q:
--- NOTE | 2017-07-11 14:47 | ECHO ---
EXAM DATE: 07/08/17 PATIENT'S AGE: 77 The echocardiogram report can be seen in this patient's EMR (Electronic Medical Record) in the Reports Section. The report has also been scanned into PACs. DIOGO
== END 2017-07-10 11:10 | disposition home or self-care (01) | DRG 313 ==
LOC: MW.ED 09:45 → MW.MS 14:17 → UNDODISIN 07-10 11:10
PROVIDERS: ADMIT Family Medicine; ATTEND Family Medicine
PROC: 3E0234Z Introduction of Serum, Toxoid and Vaccine into Muscle, Percutaneous Approach (ICD-10-PCS; principal; 2017-07-09)
DX: R07.9 Chest pain, unspecified (principal); E86.0 Dehydration; I20.0 Unstable angina; R53.1 Weakness; I95.2 Hypotension due to drugs; T44.6X5A Adverse effect of alpha-adrenoreceptor antagonists, initial encounter; T50.995A Adverse effect of other drugs, medicaments and biological substances, initial encounter; Y92.019 Unspecified place in single-family (private) house as the place of occurrence of the external cause; I65.23 Occlusion and stenosis of bilateral carotid arteries; Z79.899 Other long term (current) drug therapy; Z88.8 Allergy status to other drugs, medicaments and biological substances; N40.0 Benign prostatic hyperplasia without lower urinary tract symptoms; Z85.828 Personal history of other malignant neoplasm of skin; R55 Syncope and collapse; Z23 Encounter for immunization
CPT/HCPCS: 36415; 70450; 71010; 74177; 80053; 80061; 81001; 82150; 82550; 82553; 83036; 83690; 83880; 84484; 85025; 85379; 85610; 93005; 96360; 99285; A9270; J7040 ×2; Q9967; 80048; 82533; 82962; 90732; 93307; 93880; 93880-26; 99283; G0009; J1650

== ENCOUNTER 2017-11-05 10:01 | Emergency (ER) | payer MEDICARE, BC ==
[2017-11-05] MEDS ORDERED: Aspirin 81 MG Tab.Chew PO ONE (10:12)
[2017-11-05] MEDS ORDERED: Sodium Chloride 0.9% 2.5 ML Syringe FLUSH PRN (10:12)
[2017-11-05] MEDS ORDERED: Sodium Chloride 0.9% 10 ML Syringe FLUSH PRN (10:12)
[2017-11-05] MEDS: Nitroglycerin 0.4 MG Tab.SL SL PRN ×3 (10:21→10:33)
[2017-11-05] MEDS ORDERED: Famotidine 20 MG/2 ML SDV IVPUSH ONE (10:34)
--- NOTE | 2017-11-05 10:42 | EDM.PDOC ---
ED HPI GENERAL MEDICAL PROBLEM - General Chief Complaint: Chest Pain Stated Complaint: CHEST PAIN Time Seen by Provider: 11/05/17 10:03 Source of Information: Reports: Patient History Limitations: Reports: No Limitations - History of Present Illness INITIAL COMMENTS - FREE TEXT/NARRATIVE: History of present illness: []Patient's had intermittent substernal chest pressure for the past 2 days the pain radiates to his shoulder blades and down both arms. It is associated with shortness of breath and weakness. The last episode started around midnight.Patient was admitted in June for chest pain and syncope and he states that this chest pressure is worse than was feeling in June. Patient has not had any syncopal episodes in the last 2 days. 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 Patient also Has a history of GERD and has been taking omeprazole daily without improvement. Review of systems: As per history of present illness and below otherwise all systems reviewed and negative. Past medical history: As per history of present illness and as reviewed below otherwise noncontributory. Surgical history: As per history of present illness and as reviewed below otherwise noncontributory. Social history: No reported history of drug or alcohol abuse. Family history: As per history of present illness and as reviewed below otherwise noncontributory. Physical exam: General: Well developed, well nourished in NAD HEENT: Atraumatic, normocephalic, pupils reactive, negative for conjunctival pallor or scleral icterus, mucous membranes moist, throat clear, neck supple, nontender, trachea midline. Lungs: Clear to auscultation, breath sounds equal bilaterally, chest nontender. Heart: S1S2, regular, negative for clicks, rubs, or JVD. Abdomen: Soft, nondistended, nontender. Negative for masses or hepatosplenomegaly. Negative for costovertebral tenderness. Pelvis: Stable nontender. Genitourinary: Deferred. Rectal: Deferred. Extremities: Atraumatic, negative for cords or calf pain. Neurovascular unremarkable. Neuro: Awake, alert, oriented. Cranial nerves II through XII unremarkable. Cerebellum unremarkable. Motor and sensory unremarkable throughout. Exam nonfocal. Diagnostics: []EKG shows ST elevation in V3 and V4 appears to be repolarization changes but is different from previous EKGs. CBC is normal chemistry is normal troponin is positive at 0.075 (normal to 0.056). Therapeutics: []Patient was given aspirin and nitroglycerin on arrival with decrease his pressure from 184/114 to 160/70s. This changed his chest pain from 6 to 0. Patient was given Lovenox IV and Pepcid while in the ED Impression: [Acute [place] Plan: []Transfer to [place]. Discussed with Dr. Husain at [facility], who so evaluated the EKGs as normal Definitive disposition and diagnosis as appropriate pending reevaluation and review of above. chest Pain Score (Numeric/FACES): 2 - Related Data Allergies Allergy/AdvReac Type Severity Reaction Status Date / Time codeine Allergy Nausea and Verified 11/05/17 10:05 Vomiting Home Meds: Home Meds Omeprazole 40 mg PO DAILY 08/08/15 [History] Albuterol Sulfate [Proair Hfa] 2 inhalation PO ASDIRECTED PRN 09/20/15 [History] Aspirin [Adult Low Dose Aspirin EC] 81 mg PO DAILY 09/20/15 [History] Past Medical History HEENT History: Reports: None Cardiovascular History: Reports: Other (See Below) Other Cardiovascular History: pericarditis Respiratory History: Reports: Asthma Other Respiratory History: uses inhaler Gastrointestinal History: Reports: GERD, Hiatal Hernia Genitourinary History: Reports: Prostate Disorder Other Genitourinary History: hx of BPH Musculoskeletal History: Reports: Back Pain, Chronic Neurological History: Reports: None Psychiatric History: Reports: Anxiety Endocrine/Metabolic History: Reports: None Hematologic History: Reports: None Immunologic History: Reports: None Oncologic (Cancer) History: Reports: Basal Cell Carcinoma Dermatologic History: Reports: None - Infectious Disease History Infectious Disease History: Reports: Chicken Pox, Measles, Mumps - Past Surgical History Head Surgeries/Procedures: Reports: None HEENT Surgical History: Reports: Other (See Below) Other HEENT Surgeries/Procedures: HX of skin cancer removed x3 on face and ears Cardiovascular Surgical History: Reports: Percutaneous Transluminal Angioplasty Respiratory Surgical History: Reports: None GI Surgical History: Reports: None Male Surgical History: Reports: None Endocrine Surgical History: Reports: None Neurological Surgical History: Reports: None Musculoskeletal Surgical History: Reports: None Oncologic Surgical History: Reports: None Dermatological Surgical History: Reports: Other (See Below) Social & Family History - Family History Family Medical History: Noncontributory - Tobacco Use Smoking Status *Q: Former Smoker Years of Tobacco use: 20 Used Tobacco, but Quit: Yes Month/Year Tobacco Last Used: 2009 Second Hand Smoke Exposure: No - Caffeine Use Caffeine Use: Reports: Coffee - Alcohol Use Number of Drinks Per Day: 1 - Recreational Drug Use Recreational Drug Use: No Drug Use in Last 12 Months: No ED ROS GENERAL - Review of Systems Review Of Systems: See Below (See history of present illness) ED EXAM, GENERAL - Physical Exam Exam: See Below (See history of present illness) Course - Vital Signs Last Recorded V/S: Last Vital Signs Temp 97.5 F 11/05/17 10:07 Pulse 69 11/05/17 10:07 Resp 18 11/05/17 10:07 BP 97/66 11/05/17 10:40 Pulse Ox 99 11/05/17 10:07 - Orders/Labs/Meds Orders: Active Orders 24 hr Category Date Time Status EKG Documentation Completion [RC] STAT Care 11/05/17 10:11 Active EKG Documentation Completion [RC] STAT Care 11/05/17 10:34 Active Chest 1V Frontal [CR] Stat Exams 11/05/17 10:12 Taken Sodium Chloride 0.9% [Normal Saline] 500 ml Med 11/05/17 10:45 Active IV .BOLUS Sodium Chloride 0.9% [Saline Flush] Med 11/05/17 10:12 Active 10 ml FLUSH ASDIRECTED PRN Sodium Chloride 0.9% [Saline Flush] Med 11/05/17 10:12 Active 2.5 ml FLUSH ASDIRECTED PRN Saline Lock Insert [OM.PC] Stat Oth 11/05/17 10:11 Ordered Medication Orders Sodium Chloride (Normal Saline) 500 mls @ 70 mls/hr IV .BOLUS JO Last Infusion: 11/05/17 10:46 Dose: 999 mls/hr Admin: 11/05/17 10:46 Dose: 70 mls/hr Sodium Chloride (Saline Flush) 10 ml FLUSH ASDIRECTED PRN PRN Reason: Keep Vein Open Sodium Chloride (Saline Flush) 2.5 ml FLUSH ASDIRECTED PRN PRN Reason: Keep Vein Open Labs: Laboratory Tests 11/05/17 11/05/17 11/05/17 Range/Units 10:15 10:15 10:15 WBC 5.77 (4.0-11.0) K/uL RBC 4.89 (4.50-5.90) M/uL Hgb 15.3 (13.0-17.0) g/dL Hct 44.9 (38.0-50.0) % MCV 91.8 (80.0-98.0) fL MCH 31.3 (27.0-32.0) pg MCHC 34.1 (31.0-37.0) g/dL RDW Std Deviation 45.4 (28.0-62.0) fl RDW Coeff of María 14 (11.0-15.0) % Plt Count 163 (150-400) K/uL MPV 10.00 (7.40-12.00) fL Neut % (Auto) 35.6 L (48.0-80.0) % Lymph % (Auto) 47.1 H (16.0-40.0) % [place] % (Auto) 11.1 (0.0-15.0) % Eos % (Auto) 5.5 (0.0-7.0) % Baso % (Auto) 0.7 (0.0-1.5) % Neut # (Auto) 2.1 (1.4-5.7) K/uL Lymph # (Auto) 2.7 H (0.6-2.4) K/uL [place] # (Auto) 0.6 (0.0-0.8) K/uL Eos # (Auto) 0.3 (0.0-0.7) K/uL Baso # (Auto) 0.0 (0.0-0.1) K/uL Nucleated RBC % 0.0 /100WBC Nucleated RBCs # 0 K/uL INR 1.01 APTT 27.4 (18.6-31.3) SEC Sodium 141 (136-148) mmol/L Potassium 4.1 (3.5-5.1) mmol/L Chloride 107 (98-107) mmol/L Carbon Dioxide 27.2 (21.0-32.0) mmol/L BUN 21 H (7.0-18.0) mg/dL Creatinine 1.2 (0.8-1.3) mg/dL Est Cr Clr Drug Dosing 60.11 mL/min Estimated GFR (MDRD) 59.0 ml/min Glucose 96 (74-106) mg/dL Calcium 8.9 (8.5-10.1) mg/dL Total Bilirubin 0.6 (0.2-1.0) mg/dL AST 26 (15-37) IU/L ALT 24 (14-63) IU/L Alkaline Phosphatase 87 (46-116) U/L Troponin I 0.075 H* (0.000-0.056) ng/mL B-Natriuretic Peptide (<100) PG/ML Total Protein 7.4 (6.4-8.2) g/dL Albumin 3.7 (3.4-5.0) g/dL Globulin 3.7 H (2.0-3.5) g/dL Albumin/Globulin Ratio 1.0 L (1.3-2.8) 11/05/17 Range/Units 10:15 WBC (4.0-11.0) K/uL RBC (4.50-5.90) M/uL Hgb (13.0-17.0) g/dL Hct (38.0-50.0) % MCV (80.0-98.0) fL MCH (27.0-32.0) pg MCHC (31.0-37.0) g/dL RDW Std Deviation (28.0-62.0) fl RDW Coeff of María (11.0-15.0) % Plt Count (150-400) K/uL MPV (7.40-12.00) fL Neut % (Auto) (48.0-80.0) % Lymph % (Auto) (16.0-40.0) % [place] % (Auto) (0.0-15.0) % Eos % (Auto) (0.0-7.0) % Baso % (Auto) (0.0-1.5) % Neut # (Auto) (1.4-5.7) K/uL Lymph # (Auto) (0.6-2.4) K/uL [place] # (Auto) (0.0-0.8) K/uL Eos # (Auto) (0.0-0.7) K/uL Baso # (Auto) (0.0-0.1) K/uL Nucleated RBC % /100WBC Nucleated RBCs # K/uL INR APTT (18.6-31.3) SEC Sodium (136-148) mmol/L Potassium (3.5-5.1) mmol/L Chloride (98-107) mmol/L Carbon Dioxide (21.0-32.0) mmol/L BUN (7.0-18.0) mg/dL Creatinine (0.8-1.3) mg/dL Est Cr Clr Drug Dosing mL/min Estimated GFR (MDRD) ml/min Glucose (74-106) mg/dL Calcium (8.5-10.1) mg/dL Total Bilirubin (0.2-1.0) mg/dL AST (15-37) IU/L ALT (14-63) IU/L Alkaline Phosphatase (46-116) U/L Troponin I (0.000-0.056) ng/mL B-Natriuretic Peptide 183 H (<100) PG/ML Total Protein (6.4-8.2) g/dL Albumin (3.4-5.0) g/dL Globulin (2.0-3.5) g/dL Albumin/Globulin Ratio (1.3-2.8) Meds: Medications Generic Name Dose Route Start Last Admin Trade Name Freq PRN Reason Stop Dose Admin Sodium Chloride 500 mls @ 70 mls/hr 11/05/17 10:45 11/05/17 10:46 Normal Saline IV 999 mls/hr .BOLUS JO Infusion Sodium Chloride 10 ml 11/05/17 10:12 Saline Flush FLUSH ASDIRECTED PRN Keep Vein Open Sodium Chloride 2.5 ml 11/05/17 10:12 Saline Flush FLUSH ASDIRECTED PRN Keep Vein Open Discontinued Medications Generic Name Dose Route Start Last Admin Trade Name Freq PRN Reason Stop Dose Admin Aspirin 324 mg 11/05/17 10:12 11/05/17 10:18 Aspirin PO 11/05/17 10:13 324 mg ONETIME ONE Administration Enoxaparin Sodium 86 mg 11/05/17 11:08 Lovenox SUBCUT 11/05/17 11:09 ONETIME ONE Famotidine 20 mg 11/05/17 10:34 11/05/17 10:38 Pepcid IVPUSH 11/05/17 10:35 20 mg ONETIME ONE Administration Sodium Chloride 250 mls @ 999 mls/hr 11/05/17 10:45 Normal Saline IV .BOLUS JO Nitroglycerin 0.4 mg 11/05/17 10:12 11/05/17 10:33 Nitrostat SL 0.4 mg Q5M PRN Administration Chest Pain - Re-Assessments/Exams Free Text/Narrative Re-Assessment/Exam: Discussed with Dr. Husain in [facility] regarding this patient given these had 2 days chest pain with positive troponin EKG changes. He did evaluate the EKG and stated it is completely normal. He recommended Lovenox and transferred to [place] for further evaluation. 11/05/17 11:12 Departure - Departure Time of Disposition: 11:13 Disposition: DC/Tfer to Acute Hospital 02 Reason for Transfer *Q: Primary PCI Indicated Condition: Good Clinical Impression: Acute [place] Referrals: PCP,Unknown [Primary Care Provider] - Forms: ED Department Discharge - My Orders Last 24 Hours: My Active Orders 11/05/17 10:11 EKG Documentation Completion [RC] STAT Saline Lock Insert [OM.PC] Stat 11/05/17 10:12 Chest 1V Frontal [CR] Stat Sodium Chloride 0.9% [Saline Flush] 10 ml FLUSH ASDIRECTED PRN Sodium Chloride 0.9% [Saline Flush] 2.5 ml FLUSH ASDIRECTED PRN 11/05/17 10:34 EKG Documentation Completion [RC] STAT 11/05/17 10:45 Sodium Chloride 0.9% [Normal Saline] 500 ml IV .BOLUS - Assessment/Plan Last 24 Hours: My Active Orders 11/05/17 10:11 EKG Documentation Completion [RC] STAT Saline Lock Insert [OM.PC] Stat 11/05/17 10:12 Chest 1V Frontal [CR] Stat Sodium Chloride 0.9% [Saline Flush] 10 ml FLUSH ASDIRECTED PRN Sodium Chloride 0.9% [Saline Flush] 2.5 ml FLUSH ASDIRECTED PRN 11/05/17 10:34 EKG Documentation Completion [RC] STAT 11/05/17 10:45 Sodium Chloride 0.9% [Normal Saline] 500 ml IV .BOLUS
[2017-11-05] MEDS ORDERED: Sodium Chloride 0.9% 250 ML IV SCH (10:45)
[2017-11-05] MEDS ORDERED: Sodium Chloride 0.9% 500 ML IV SCH (10:45)
[2017-11-05] MEDS ORDERED: Enoxaparin 100 MG/1 ML Syringe SUBCUT ONE (11:08)
--- NOTE | 2017-11-05 11:15 | CR ---
EXAMINATION: Portable chest radiograph. HISTORY: Shortness of breath. FINDINGS: The trachea is midline. The cardiomediastinal silhouette is within normal limits. No pulmonary infilt rates, effusions or pneumothorax. Osseous structures appear unremarkable. IMPRESSION: No acute cardiopulmonary process.
[2017-11-05 12:43] VITALS: BP 120/81
== END 2017-11-05 12:08 ==
LOC: MW.ED 10:01
DX: I21.9 Acute myocardial infarction, unspecified (principal); Z88.5 Allergy status to narcotic agent; Z79.899 Other long term (current) drug therapy; Z87.891 Personal history of nicotine dependence
CPT/HCPCS: 71045; 80053; 83880; 84484; 85025; 85610; 85730; 93005; 96361; 96374; 99285; A9270; J1650; J7040; 99284

== ENCOUNTER 2017-12-20 09:42 | Emergency (ER) | payer MEDICARE, BC ==
--- NOTE | 2017-12-20 10:06 | EDM.PDOC ---
ED HPI GENERAL MEDICAL PROBLEM - General Chief Complaint: Gastrointestinal Problem Stated Complaint: DIARRHEA Time Seen by Provider: 12/20/17 10:00 Source of Information: Reports: Patient History Limitations: Reports: No Limitations - History of Present Illness INITIAL COMMENTS - FREE TEXT/NARRATIVE: HISTORY AND PHYSICAL: []77-year-old gentleman presenting from [facility] with diarrhea History of Present Illness: []Patient did have some intermittent chest pain last night and recent history 6 weeks ago stents placed. He felt this was probably from some bloating feeling that he was noticing with his abdomen. Patient had been on Augmentin for a sinus infection he started getting diarrhea and quit taking this one week ago diarrhea has worsened since then Patient is thin. he is pale looking Review of Systems: As per history of present illness and below otherwise all systems reviewed and negative. Past medical history: As per history of present illness and as reviewed below otherwise noncontributory. Surgical history: As per history of present illness and as reviewed below otherwise noncontributory. Social history: No reported history of drug or alcohol abuse. Family history: As per history of present illness and as reviewed below otherwise noncontributory. Physical exam: Alert gentleman answering questions appropriately in full sentences without any shortness of breath. His does admit to mild nausea. HEENT: Atraumatic, normocehpalic, pupils reactive, negative for conjunctival pallor or scleral icterus, mucous membranes moist, throat clear, neck supple, nontender, trachea midline. Lungs: Clear to auscultation, breath sounds equal bilaterally, chest non tender. Heart: S1S2, regular, negative for clicks, rubs, or JVD. Abdomen: Soft, nondistended, nontender. Negative for masses or hepatossplenmegaly. Negative for costovertebral tenderness. Pelvis: Stable nontender. Genitourinary: Deferred. Rectal: Deferred Extremities: Atraumatic, negative for cords or calf pain. Neurovascular unremarkable. Neuro: Awake, alert, oriented. Cranial nerves II through XII unremarkable. Cerebellum unremarkable. Motor and sensory unremarkable throughout. Exam nonfocal. Diagnostics: []CBC CMP [place] C. difficile chest x-ray EKG troponin Therapeutics: []500 bolus IV fluids Zofran Impression: [] Plan: [] Definitive disposition and diagnosis as appropriate pending reevaluation and review of above. Onset: Gradual Duration: Week(s): (1) Location: Reports: Abdomen Quality: Reports: Ache Severity: Moderate Abdominal Pain Score (Numeric/FACES): 5 - Related Data Allergies Allergy/AdvReac Type Severity Reaction Status Date / Time codeine Allergy Nausea and Verified 12/20/17 09:57 Vomiting Home Meds: Home Meds Albuterol Sulfate [Proair Hfa] 2 inhalation PO ASDIRECTED PRN 09/20/15 [History] Aspirin [Adult Low Dose Aspirin EC] 81 mg PO DAILY 09/20/15 [History] Ciprofloxacin HCl [Cipro] 500 mg PO BID #10 tablet 12/20/17 [Rx] Clopidogrel [Plavix] 75 mg PO DAILY 12/20/17 [History] Lisinopril [Zestril] 2.5 mg PO DAILY 12/20/17 [History] Loperamide HCl [Imodium A-D] 2 mg PO QID PRN #20 tablet 12/20/17 [Rx] Rosuvastatin [Crestor] 20 mg PO DAILY 12/20/17 [History] Tamsulosin HCl [Flomax] 0.4 mg PO DAILY 12/20/17 [History] Past Medical History HEENT History: Reports: None Cardiovascular History: Reports: Other (See Below) Other Cardiovascular History: pericarditis Respiratory History: Reports: Asthma Other Respiratory History: uses inhaler Gastrointestinal History: Reports: GERD, Hiatal Hernia Genitourinary History: Reports: Prostate Disorder Other Genitourinary History: hx of BPH Musculoskeletal History: Reports: Back Pain, Chronic Neurological History: Reports: None Psychiatric History: Reports: Anxiety Endocrine/Metabolic History: Reports: None Hematologic History: Reports: None Immunologic History: Reports: None Oncologic (Cancer) History: Reports: Basal Cell Carcinoma Dermatologic History: Reports: None - Infectious Disease History Infectious Disease History: Reports: Chicken Pox, Measles, Mumps - Past Surgical History Head Surgeries/Procedures: Reports: None HEENT Surgical History: Reports: Other (See Below) Other HEENT Surgeries/Procedures: HX of skin cancer removed x3 on face and ears Cardiovascular Surgical History: Reports: Percutaneous Transluminal Angioplasty Respiratory Surgical History: Reports: None GI Surgical History: Reports: None Male Surgical History: Reports: None Endocrine Surgical History: Reports: None Neurological Surgical History: Reports: None Musculoskeletal Surgical History: Reports: None Oncologic Surgical History: Reports: None Dermatological Surgical History: Reports: Other (See Below) Social & Family History - Family History Family Medical History: Noncontributory - Tobacco Use Smoking Status *Q: Former Smoker Years of Tobacco use: 20 Used Tobacco, but Quit: Yes Month/Year Tobacco Last Used: 2009 Second Hand Smoke Exposure: No - Caffeine Use Caffeine Use: Reports: Coffee - Alcohol Use Number of Drinks Per Day: 1 - Recreational Drug Use Recreational Drug Use: No Drug Use in Last 12 Months: No ED ROS GENERAL - Review of Systems Review Of Systems: ROS reveals no pertinent complaints other than HPI. ED EXAM, GI/ABD - Physical Exam Exam: See Below (see dictation) Course - Vital Signs Last Recorded V/S: Last Vital Signs Temp 36.6 C 12/20/17 09:54 Pulse 82 12/20/17 09:54 Resp 18 12/20/17 09:54 BP 128/84 12/20/17 09:54 Pulse Ox 98 12/20/17 09:54 - Orders/Labs/Meds Orders: Active Orders 24 hr Category Date Time Status EKG Documentation Completion [RC] STAT Care 12/20/17 10:07 Active CULTURE STOOL + CAMPY+SHIGATOX [RM] Stat Lab 12/20/17 11:36 Ordered Clostridium Difficile [CDIFF TOX A+B] [OP] Stat Lab 12/20/17 11:36 Ordered Sodium Chloride 0.9% [Normal Saline] 500 ml Med 12/20/17 10:15 Active IV STAT Sodium Chloride 0.9% [Normal Saline] 500 ml Med 12/20/17 13:15 Ordered IV STAT Sodium Chloride 0.9% [Saline Flush] Med 12/20/17 10:07 Active 10 ml FLUSH ASDIRECTED PRN Sodium Chloride 0.9% [Saline Flush] Med 12/20/17 10:07 Active 2.5 ml FLUSH ASDIRECTED PRN Saline Lock Insert [OM.PC] Stat Oth 12/20/17 10:07 Ordered Medication Orders Sodium Chloride (Normal Saline) 500 mls @ 999 mls/hr IV STAT JO Last Admin: 12/20/17 10:15 Dose: 999 mls/hr Sodium Chloride (Normal Saline) 500 mls @ 999 mls/hr IV STAT JO Sodium Chloride (Saline Flush) 10 ml FLUSH ASDIRECTED PRN PRN Reason: Keep Vein Open Sodium Chloride (Saline Flush) 2.5 ml FLUSH ASDIRECTED PRN PRN Reason: Keep Vein Open Labs: Laboratory Tests 12/20/17 12/20/17 Range/Units 10:15 10:15 WBC 6.02 (4.0-11.0) K/uL RBC 4.50 (4.50-5.90) M/uL Hgb 13.9 (13.0-17.0) g/dL Hct 40.7 (38.0-50.0) % MCV 90.4 (80.0-98.0) fL MCH 30.9 (27.0-32.0) pg MCHC 34.2 (31.0-37.0) g/dL RDW Std Deviation 42.9 (28.0-62.0) fl RDW Coeff of María 13 (11.0-15.0) % Plt Count 195 (150-400) K/uL MPV 9.60 (7.40-12.00) fL Neut % (Auto) 57.3 (48.0-80.0) % Lymph % (Auto) 24.6 (16.0-40.0) % [place] % (Auto) 13.3 (0.0-15.0) % Eos % (Auto) 4.5 (0.0-7.0) % Baso % (Auto) 0.3 (0.0-1.5) % Neut # (Auto) 3.5 (1.4-5.7) K/uL Lymph # (Auto) 1.5 (0.6-2.4) K/uL [place] # (Auto) 0.8 (0.0-0.8) K/uL Eos # (Auto) 0.3 (0.0-0.7) K/uL Baso # (Auto) 0.0 (0.0-0.1) K/uL Nucleated RBC % 0.0 /100WBC Nucleated RBCs # 0 K/uL Sodium 142 (136-148) mmol/L Potassium 3.4 L (3.5-5.1) mmol/L Chloride 108 H (98-107) mmol/L Carbon Dioxide 24.9 (21.0-32.0) mmol/L BUN 15 (7.0-18.0) mg/dL Creatinine 1.1 (0.8-1.3) mg/dL Est Cr Clr Drug Dosing 67.46 mL/min Estimated GFR (MDRD) > 60.0 ml/min Glucose 101 (74-106) mg/dL Calcium 8.6 (8.5-10.1) mg/dL Total Bilirubin 0.4 (0.2-1.0) mg/dL AST 19 (15-37) IU/L ALT 14 (14-63) IU/L Alkaline Phosphatase 68 (46-116) U/L Troponin I < 0.050 (0.000-0.056) ng/mL C-Reactive Protein 8.80 H (0.00-0.90) mg/dL Total Protein 7.0 (6.4-8.2) g/dL Albumin 3.0 L (3.4-5.0) g/dL Globulin 4.0 H (2.0-3.5) g/dL Albumin/Globulin Ratio 0.8 L (1.3-2.8) Meds: Medications Generic Name Dose Route Start Last Admin Trade Name Didierq PRN Reason Stop Dose Admin Sodium Chloride 500 mls @ 999 mls/hr 12/20/17 10:15 12/20/17 10:15 Normal Saline IV 999 mls/hr STAT JO Administration Sodium Chloride 500 mls @ 999 mls/hr 12/20/17 13:15 Normal Saline IV STAT JO Sodium Chloride 10 ml 12/20/17 10:07 Saline Flush FLUSH ASDIRECTED PRN Keep Vein Open Sodium Chloride 2.5 ml 12/20/17 10:07 Saline Flush FLUSH ASDIRECTED PRN Keep Vein Open Discontinued Medications Generic Name Dose Route Start Last Admin Trade Name Didierq PRN Reason Stop Dose Admin Ondansetron HCl 4 mg 12/20/17 10:15 12/20/17 10:48 Zofran IVPUSH 12/20/17 10:16 Not Given ONETIME ONE Departure - Departure Time of Disposition: 13:05 Disposition: Home, Self-Care 01 Condition: Good Clinical Impression: Diarrhea, Campylobacter diarrhea - Discharge Information Prescriptions: Ciprofloxacin HCl [Cipro] 500 mg PO BID #10 tablet Loperamide HCl [Imodium A-D] 2 mg PO QID PRN #20 tablet PRN Reason: Diarrhea Instructions: Preventing Foodborne Illness, Dehydration, Adult, [id number] Referrals: PCP,Unknown [Primary Care Provider] - Forms: ED Department Discharge Additional Instructions: The following information is given to patients seen in the emergency department who are being discharged to home. This information is to outline your options for follow-up care. We provide all patients seen in our emergency department with a follow-up referral. The need for follow-up, as well as the timing and circumstances, are variable depending upon the specifics of your emergency department visit. If you don't have a primary care physician on staff, we will provide you with a referral. We always advise you to contact your personal physician following an emergency department visit to inform them of the circumstance of the visit and for follow-up with them and/or the need for any referrals to a consulting specialist. The emergency department will also refer you to a specialist when appropriate. This referral assures that you have the opportunity for followup care with a specialist. All of these measure are taken in an effort to provide you with optimal care, which includes your followup. Under all circumstances we always encourage you to contact your private physician who remains a resource for coordinating your care. When calling for followup care, please make the office aware that this follow-up is from your recent emergency room visit. If for any reason you are refused follow-up, please contact the [facility] emergency department at and asked to speak to the emergency department charge nurse. You have aCamplora bacteria Follow up with your PCP Should you continue with blood in stool you need follow up for a colonoscopy Return to the ER as discussed - My Orders Last 24 Hours: My Active Orders 12/20/17 10:07 EKG Documentation Completion [RC] STAT Sodium Chloride 0.9% [Saline Flush] 10 ml FLUSH ASDIRECTED PRN Sodium Chloride 0.9% [Saline Flush] 2.5 ml FLUSH ASDIRECTED PRN Saline Lock Insert [OM.PC] Stat 12/20/17 10:15 Sodium Chloride 0.9% [Normal Saline] 500 ml IV STAT 12/20/17 11:36 CULTURE STOOL + CAMPY+SHIGATOX [RM] Stat Clostridium Difficile [CDIFF TOX A+B] [OP] Stat 12/20/17 13:15 Sodium Chloride 0.9% [Normal Saline] 500 ml IV STAT - Assessment/Plan Last 24 Hours: My Active Orders 12/20/17 10:07 EKG Documentation Completion [RC] STAT Sodium Chloride 0.9% [Saline Flush] 10 ml FLUSH ASDIRECTED PRN Sodium Chloride 0.9% [Saline Flush] 2.5 ml FLUSH ASDIRECTED PRN Saline Lock Insert [OM.PC] Stat 12/20/17 10:15 Sodium Chloride 0.9% [Normal Saline] 500 ml IV STAT 12/20/17 11:36 CULTURE STOOL + CAMPY+SHIGATOX [RM] Stat Clostridium Difficile [CDIFF TOX A+B] [OP] Stat 12/20/17 13:15 Sodium Chloride 0.9% [Normal Saline] 500 ml IV STAT
[2017-12-20] MEDS ORDERED: Sodium Chloride 0.9% 2.5 ML Syringe FLUSH PRN (10:07)
[2017-12-20] MEDS ORDERED: Sodium Chloride 0.9% 10 ML Syringe FLUSH PRN (10:07)
[2017-12-20] MEDS ORDERED: Ondansetron 4 MG/2 ML SDV IVPUSH ONE (10:15)
[2017-12-20] MEDS ORDERED: Sodium Chloride 0.9% 500 ML IV SCH ×2 (10:15→13:15)
[2017-12-20 11:02] LABS: CHLORIDE,CL 108 mmol/L (98-107); SODIUM,NA 142 mmol/L (136-148)
[2017-12-20 13:13] VITALS: BP 117/57
== END 2017-12-20 14:25 | disposition home or self-care (01) ==
LOC: MW.ED 09:42
DX: A04.5 Campylobacter enteritis (principal); Z88.5 Allergy status to narcotic agent; Z79.82 Long term (current) use of aspirin; Z79.899 Other long term (current) drug therapy; Z87.891 Personal history of nicotine dependence
CPT/HCPCS: 71045; 80053; 84484; 85025; 86140; 87046; 87324; 93005; 96360; 99284; J7040; 87899

== ENCOUNTER 2019-04-03 09:25 | Day surgery (SDC) | payer MEDICARE, BC ==
[~2019-04-03 09:25] MED LIST: Lactated Ringers 1,000 ML IV SCH; Midazolam 1 MG/ML 2 ML SDV ONE; Propofol 200 MG/20 ML SDV ONE; fentaNYL 100 MCG/2 ML SDV ONE
--- NOTE | 2019-04-03 10:10 | PCM.PREANE ---
Preanesthetic Assessment - Anesthesia/Transfusion/Family Hx Anesthesia History: Prior Anesthesia Without Reaction Family History of Anesthesia Reaction: No Transfusion History: No Prior Transfusion(s) Intubation History: Unknown - Review of Systems General: No Symptoms Pulmonary: No Symptoms Cardiovascular: No Symptoms Gastrointestinal: No Symptoms, Other (h/o colon polyps '16 as well as colitis) Neurological: No Symptoms Other: Reports: None - Physical Assessment O2 Sat by Pulse Oximetry: 98 Respiratory Rate: 16 Vital Signs: Last Vital Signs Temp 36.3 C 04/03/19 10:02 Pulse 68 04/03/19 10:02 Resp 16 04/03/19 10:02 BP 119/75 04/03/19 10:02 Pulse Ox 98 04/03/19 10:02 Height: 6 ft 1 in Weight: 83.915 kg ASA Class: 3 Mental Status: Alert & Oriented x3 Airway Class: Mallampati = 2 Dentition: Reports: Dentures (upper and lower) Thyro-Mental Finger Breadths: 3 Mouth Opening Finger Breadths: 2 (small mouth) ROM/Head Extension: Limited/Partial Lungs: Clear to Auscultation, Normal Respiratory Effort Cardiovascular: Regular Rate, Regular Rhythm - Allergies Allergies/Adverse Reactions: Allergies Allergy/AdvReac Type Severity Reaction Status Date / Time codeine Allergy Nausea and Verified 04/01/19 14:11 Vomiting - Blood Blood Available: No - Anesthesia Plan Pre-Op Medication Ordered: None - Acknowledgements Anesthesia Type Planned: MAC Pt an Appropriate Candidate for the Planned Anesthesia: Yes Alternatives and Risks of Anesthesia Discussed w Pt/Guardian: Yes Pt/Guardian Understands and Agrees with Anesthesia Plan: Yes PreAnesthesia Questionnaire HEENT History: Reports: Cataract, Hard of Hearing, Other (See Below) Other HEENT History: has upper denture and lower bridge, has bilateral hearing aides Cardiovascular History: Reports: CAD (non ST-elevation OR a year ago, stenosis of rt. carotid artery non requiring treatment, EF 61%), High Cholesterol, Hypertension, OR Other Cardiovascular History: pericarditis Respiratory History: Reports: Asthma, COPD, SOB (less than 2 blocks) Other Respiratory History: rarely uses inhalers, h/o mild sleep apnea Gastrointestinal History: Reports: Colon Polyp, PUD, Other (See Below) ( moderate chronic ulcerative colitis) Genitourinary History: Reports: BPH, UTI, Recurrent Other Genitourinary History: hx of BPH Musculoskeletal History: Reports: Back Pain, Chronic Neurological History: Reports: None Psychiatric History: Reports: Anxiety, Depression Endocrine/Metabolic History: Reports: None Hematologic History: Reports: None Immunologic History: Reports: None Oncologic (Cancer) History: Reports: Basal Cell Carcinoma, Malignant Melanoma Other Oncologic History: skin cancers removed from lower lip and ears Dermatologic History: Reports: None - Infectious Disease History Infectious Disease History: Reports: Chicken Pox, Measles, Mumps - Past Surgical History HEENT Surgical History: Reports: Cataract Surgery, Tonsillectomy Cardiovascular Surgical History: Reports: Coronary Artery Stent Other Cardiovascular Surgeries/Procedures: angioplasty 1 year ago- 2 stents placed, angiogram 2 months ago- no blockage found GI Surgical History: Reports: Colonoscopy (x3, last one 2 years ago), EGD Neurological Surgical History: Reports: Discectomy, Lumbar Spine Dermatological Surgical History: Reports: Skin Biopsy - SUBSTANCE USE Smoking Status *Q: Former Smoker Tobacco Use Within Last Twelve Months: No Recreational Drug Use History: No - HOME MEDS Home Medications: Home Meds Albuterol Sulfate [Proair Hfa] 2 inhalation PO QID PRN 09/20/15 [History] Aspirin [Adult Low Dose Aspirin EC] 81 mg PO DAILY 09/20/15 [History] Clopidogrel [Plavix] 75 mg PO DAILY 12/20/17 [History] Lisinopril [Zestril] 2.5 mg PO DAILY 12/20/17 [History] Rosuvastatin [Crestor] 20 mg PO DAILY 12/20/17 [History] Tamsulosin HCl [Flomax] 0.4 mg PO DAILY 12/20/17 [History] Doxazosin Mesylate [Cardura XL] 4 mg PO BEDTIME 04/01/19 [History] Sulfamethoxazole/Trimethoprim [Bactrim 400-80 MG] 1 tab PO DAILY 04/01/19 [ History] Tiotropium [place] [Spiriva Respimat] 2.5 mcg INH QAM 04/01/19 [History] - CURRENT (IN HOUSE) MEDS Current Meds: Current Medications Lactated Ringer's (Ringers, Lactated) 1,000 mls @ 125 mls/hr IV ASDIRECTED JO Discontinued Medications Fentanyl (Sublimaze) Confirm Administered Dose 100 mcg .ROUTE .STK-MED ONE Stop: 04/03/19 07:30 Midazolam HCl (Versed 1 Mg/Ml) Confirm Administered Dose 2 mg .ROUTE .STK-MED ONE Stop: 04/03/19 07:31 Propofol (Diprivan 20 Ml) Confirm Administered Dose 200 mg .ROUTE .STK-MED ONE Stop: 04/03/19 07:30
[2019-04-03] MEDS ORDERED: ePHEDrine 50 MG/ML SDV ONE (11:05)
[2019-04-03] MEDS ORDERED: Phenylephrine/Normal Saline 100 MCG/ML 10 ML Syringe ONE (11:06)
[2019-04-03] MEDS ORDERED: Lactated Ringers 1,000 ML IV SCH (11:45)
--- NOTE | 2019-04-03 11:45 | PCM.OPNOTE ---
- General Post-Op/Procedure Note Date of Surgery/Procedure: 04/03/19 Operative Procedure(s): Colonoscopy Pre Op Diagnosis: History of colon polyps. History of ulcerative colitis. Right lower quadrant pain. Post-Op Diagnosis: No evidence of neoplasia Anesthesia Technique: MAC (ASA III) Primary Surgeon: Kahlil Mckeon Condition: Good Free Text/Narrative:: DICTATION [id number] CPT CODE 23101
--- NOTE | 2019-04-03 11:49 | PCM.POSTAN ---
POST ANESTHESIA ASSESSMENT - MENTAL STATUS Mental Status: Alert, Oriented - RESPIRATORY Respiratory Status: Respiratory Rate WNL, Airway Patent, O2 Saturation Stable - CARDIOVASCULAR CV Status: Pulse Rate WNL, Blood Pressure Stable - GASTROINTESTINAL GI Status: No Symptoms - PAIN Pain Score: 0 - POST OP HYDRATION Hydration Status: Adequate & Stable - OBSERVATIONS Free Text/Narrative:: Pt stable for phase II
[2019-04-03 12:29] VITALS: BP 124/72
[2019-04-03 12:30] VITALS: PULSE 54
--- NOTE | 2019-04-03 12:44 | PCM48HPAN ---
Post Anesthesia Note - EVALUATION WITHIN 48HRS OF ANESTHETIC Vital Signs in Normal Range: Yes Patient Participated in Evaluation: Yes Respiratory Function Stable: Yes Airway Patent: Yes Cardiovascular Function Stable: Yes Hydration Status Stable: Yes Pain Control Satisfactory: Yes Nausea and Vomiting Control Satisfactory: Yes Mental Status Recovered: Yes Pulse Rate: 54 Resp Rate: 16 Blood Pressure: 124/72 - COMMENTS/OBSERVATIONS Free Text/Narrative:: Pt stable with no complications noted.
--- NOTE | 2019-04-03 18:00 | OR ---
SURGEON: Kahlil Mckeon M.D. DATE OF PROCEDURE: 04/03/2019 OPERATION PERFORMED: Colonoscopy. PRIMARY SURGEON: Kahlil Mckeon M.D. ANESTHESIA: MAC. ASA CLASSIFICATION: III. PREOPERATIVE DIAGNOSES: 1. Personal history of colon polyps. 2. History of colitis. 3. Right lower quadrant discomfort. POSTOPERATIVE DIAGNOSIS: No evidence of neoplasia. DESCRIPTION OF PROCEDURE: The patient was taken to the endoscopy room and positioned on the endoscopy table in the left lateral decubitus position. Time-out was called for appropriate identification of the patient and procedure. Monitored anesthesia care was provided. The colonoscope was inserted into the rectum and advanced with moderate difficulty to the cecum where the colonoscope was able to be retroflexed to visualize the ascending colon from below. The colonoscope was then straightened and slowly withdrawn. The cecum, ascending colon, hepatic flexure, transverse colon, splenic flexure, descending colon, sigmoid colon, and rectum were very well visualized. No tumors, polyps, diverticula, or angiodysplastic changes were noted anywhere in the lower gastrointestinal tract. Once the colonoscope was withdrawn to the rectum, it was retroflexed to visualize the anal orifice from above. No tumors, polyps, or acute hemorrhoidal changes were noted. The colonoscope was then straightened, the rectum aspirated, and the colonoscope removed. The patient tolerated the procedure well and was taken to recovery room in stable condition. JEREMY HOOVER /[id number]
== END 2019-04-03 12:30 | disposition home or self-care (01) ==
LOC: MW.SDS 09:25
PROVIDERS: ATTEND Surgery
DX: R10.31 Right lower quadrant pain (principal); K21.9 Gastro-esophageal reflux disease without esophagitis; J44.9 Chronic obstructive pulmonary disease, unspecified; I25.10 Atherosclerotic heart disease of native coronary artery without angina pectoris; N40.1 Benign prostatic hyperplasia with lower urinary tract symptoms; N13.8 Other obstructive and reflux uropathy; F41.8 Other specified anxiety disorders; I10 Essential (primary) hypertension; E78.00 Pure hypercholesterolemia, unspecified; Z86.010 Personal history of colon polyps; Z87.19 Personal history of other diseases of the digestive system; Z88.5 Allergy status to narcotic agent; Z79.82 Long term (current) use of aspirin; Z79.899 Other long term (current) drug therapy; Z79.2 Long term (current) use of antibiotics; Z87.891 Personal history of nicotine dependence
CPT/HCPCS: 45378; J2250; J2370; J2704; J3010; J7120; 00812

== ENCOUNTER 2020-07-02 13:23 | Emergency (ER) | payer MEDICARE, BC ==
--- NOTE | 2020-07-02 14:18 | EDM.PDOC ---
ED HPI GENERAL MEDICAL PROBLEM - General Chief Complaint: General Stated Complaint: wants covid test Time Seen by Provider: 07/02/20 13:42 Source of Information: Reports: Patient History Limitations: Reports: No Limitations - History of Present Illness INITIAL COMMENTS - FREE TEXT/NARRATIVE: HISTORY AND PHYSICAL: History of present illness: Patient is a 80-year-old male who presents to the ED today with concern of a COVID-19 exposure that occurred this past week. Patient states that he was exposed to another person who has known COVID-19 and he is concerned that he may be getting the infection as he has been slightly more tired than usual. Patient denies any other symptoms or concerns. Patient denies fever, chills, chest pain, shortness of breath, or cough. Denies headache, neck stiff ness, change in vision, syncope, or near syncope. Denies nausea, vomiting, abdominal pain, diarrhea, constipation, or dysuria. Has not noted any blood in urine or stool. Patient has been eating and drinking appropriately. Review of systems: As per history of present illness and below otherwise all systems reviewed and negative. Past medical history: As per history of present illness and as reviewed below otherwise noncontributory. Surgical history: As per history of present illness and as reviewed below otherwise noncontributory. Social history: See social history for further information Family history: As per history of present illness and as reviewed below otherwise noncontributory. Physical exam: General: Patient is alert, oriented, and in no acute distress. Patient sitting comfortably on exam table. Vitals stable and reviewed by me. HEENT: Atraumatic, normocephalic, pupils equal and reactive bilaterally, negative for conjunctival pallor or scleral icterus, mucous membranes moist, TMs normal bilaterally, throat clear, neck supple, nontender, trachea midline. No drooling or trismus noted. No meningeal signs. No hot potato voice noted. Lungs: Clear to auscultation, breath sounds equal bilaterally, chest nontender. Heart: S1S2, regular rate and rhythm without overt murmur Abdomen: Soft, nondistended, nontender. Negative for masses or hepatosplenom egaly. Negative for costovertebral tenderness. Pelvis: Stable nontender. Genitourinary: Deferred. Rectal: Deferred. Skin: Intact, warm, dry. No lesions or rashes noted. Extremities: Atraumatic, negative for cords or calf pain. Neurovascular unremarkable. Neuro: Awake, alert, oriented. Cranial nerves II through XII unremarkable. Cerebellum unremarkable. Motor and sensory unremarkable throughout. Exam nonfocal. Notes: Signs and symptoms that would prompt return to the ED thoroughly discussed with patient. Discussed importance for follow-up with a primary care provider. Voices understanding and is agreeable to plan of care. Denies any further questions or concerns at this time. Diagnostics: COVID-19 state send out Therapeutics: None Prescription: None Impression: Exposure to COVID-19 Plan: 1. Continue to monitor for trouble breathing, new confusion or inability to arouse, bluish lips or face or any of the other symptoms we discussed -if this occurs please return to the emergency room. Continue to monitor your health at home for worsening symptoms so that you can be taken care of and treated quickly if needed. 2. Please self quarantine until you hear from the [facility] on further quarantine guidance. Avoid using public transportation, ride-sharing, or taxis. Inform any persons that you have been in contact with since you started becoming symptomatic that you have tested positive; they should be made aware and take the appropriate steps as needed. 3. The [facility] phone number , They are open Saturday - Saturday 7am - 7pm. Follow up with your primary care provider as discussed. 4. For more specific guidelines regarding isolation/quarantine please visit this website. https://www.health.[place].gov/sites/www/files/documents/Files/ HERMELINDA/coronavirus/Factsheet_for_People_With_COVID-19.pdf Definitive disposition and diagnosis as appropriate pending reevaluation and review of above. - Related Data Allergies Allergy/AdvReac Type Severity Reaction Status Date / Time codeine Allergy Nausea and Verified 07/02/20 14:10 Vomiting Home Meds: Home Meds Albuterol Sulfate [Proair Hfa] 2 inhalation PO QID PRN 09/20/15 [History] Aspirin [Adult Low Dose Aspirin EC] 81 mg PO DAILY 09/20/15 [History] Clopidogrel [Plavix] 75 mg PO DAILY 12/20/17 [History] Rosuvastatin [Crestor] 20 mg PO DAILY 12/20/17 [History] Tamsulosin HCl [Flomax] 0.4 mg PO DAILY 12/20/17 [History] Doxazosin Mesylate [Cardura XL] 4 mg PO BEDTIME 04/01/19 [History] Sulfamethoxazole/Trimethoprim [Bactrim 400-80 MG] 1 tab PO DAILY 04/01/19 [History] Tiotropium [place] [Spiriva Respimat] 2.5 mcg INH QAM 04/01/19 [History] Past Medical History HEENT History: Reports: None Other HEENT History: has upper denture and lower bridge, has bilateral hearing aides Cardiovascular History: Reports: High Cholesterol, Hypertension Other Cardiovascular History: pericarditis Respiratory History: Reports: Asthma, COPD, SOB Other Respiratory History: rarely uses inhalers, h/o mild sleep apnea Gastrointestinal History: Reports: Colon Polyp, PUD, Other (See Below) Genitourinary History: Reports: Prostate Disorder Other Genitourinary History: hx of BPH Musculoskeletal History: Reports: Back Pain, Chronic Neurological History: Reports: None Psychiatric History: Reports: Anxiety, Depression Endocrine/Metabolic History: Reports: None Hematologic History: Reports: None Immunologic History: Reports: None Oncologic (Cancer) History: Reports: Basal Cell Carcinoma Other Oncologic History: skin cancers removed from lower lip and ears Dermatologic History: Reports: None - Infectious Disease History Infectious Disease History: Reports: Chicken Pox, Measles, Mumps - Past Surgical History Head Surgeries/Procedures: Reports: None HEENT Surgical History: Reports: Other (See Below) Cardiovascular Surgical History: Reports: Percutaneous Transluminal Angioplasty Other Cardiovascular Surgeries/Procedures: HX OF ANGIOGRAM, 2 stents Respiratory Surgical History: Reports: None GI Surgical History: Reports: None Endocrine Surgical History: Reports: None Neurological Surgical History: Reports: None Musculoskeletal Surgical History: Reports: None Other Musculoskeletal Surgeries/Procedures:: hx of 2 back surgeries Dermatological Surgical History: Reports: Other (See Below) Social & Family History - Family History Family Medical History: Noncontributory - Tobacco Use Tobacco Use Status *Q: Never Tobacco User - Caffeine Use Caffeine Use: Reports: Coffee - Recreational Drug Use Recreational Drug Use: No ED ROS GENERAL - Review of Systems Review Of Systems: Comprehensive ROS is negative, except as noted in HPI. ED EXAM, GENERAL - Physical Exam Exam: See Below (see dictation) Course - Vital Signs Last Recorded V/S: Last Vital Signs Temp 97.5 F 07/02/20 14:11 Pulse 72 07/02/20 14:11 Resp 18 07/02/20 14:11 BP 153/76 H 07/02/20 14:11 Pulse Ox 96 07/02/20 14:11 Departure - Departure Time of Disposition: 14:32 Disposition: Home, Self-Care 01 Clinical Impression: Exposure to COVID-19 virus - Discharge Information Referrals: Armando Dunn MD [Primary Care Provider] - Forms: ED Department Discharge Additional Instructions: The following information is given to patients seen in the emergency department who are being discharged to home. This information is to outline your options for follow-up care. We provide all patients seen in our emergency department with a follow-up referral. The need for follow-up, as well as the timing and circumstances, are variable depending upon the specifics of your emergency department visit. If you don't have a primary care physician on staff, we will provide you with a referral. We always advise you to contact your personal physician following an emergency department visit to inform them of the circumstance of the visit and for follow-up with them and/or the need for any referrals to a consulting specialist. The emergency department will also refer you to a specialist when appropriate. This referral assures that you have the opportunity for follow-up care with a specialist. All of these measure are taken in an effort to provide you with optimal care, which includes your follow-up. Under all circumstances we always encourage you to contact your private physician who remains a resource for coordinating your care. When calling for follow-up care, please make the office aware that this follow-up is from your recent emergency room visit. If for any reason you are refused follow-up, please contact the [facility] Emergency Department at and asked to speak to the emergency department charge nurse. [facility] [address] [place] [id number] [address] [id number] 1. Continue to monitor for trouble breathing, new confusion or inability to arouse, bluish lips or face or any of the other symptoms we discussed -if this occurs please return to the emergency room. Continue to monitor your health at home for worsening symptoms so that you can be taken care of and treated quickly if needed. 2. Please self quarantine until you hear from the [facility] on further quarantine guidance. Avoid using public transportation, ride-sharing, or taxis. Inform any persons that you have been in contact with since you started becoming symptomatic that you have tested positive; they should be made aware and take the appropriate steps as needed. 3. The [facility] phone number , They are open Saturday - Saturday 7am - 7pm. Follow up with your primary care provider as discussed. 4. For more specific guidelines regarding isolation/quarantine please visit this website. https://www.health.[place].gov/sites/www/files/documents/Files /HERMELINDA/coronavirus/Factsheet_for_People_With_COVID-19.pdf Sepsis Event Note (ED) - Evaluation Sepsis Screening Result: No Definite Risk - Focused Exam Vital Signs: Vital Signs Temp Pulse Resp BP Pulse Ox 07/02/20 14:11 97.5 F 72 18 153/76 H 96
[2020-07-02 15:11] VITALS: BP 132/76; PULSE 68
== END 2020-07-02 15:05 | disposition home or self-care (01) ==
LOC: MW.ED 13:23
DX: R53.83 Other fatigue (principal); Z20.828 Contact with and (suspected) exposure to other viral communicable diseases
CPT/HCPCS: 99283; U0002; 99282

== ENCOUNTER 2021-01-16 09:18 | Emergency (ER) | payer MEDICARE, BC ==
[2021-01-16] MEDS ORDERED: Sodium Chloride 0.9% 10 ML Syringe FLUSH PRN (09:36)
[2021-01-16] MEDS ORDERED: Sodium Chloride 0.9% 2.5 ML Syringe FLUSH PRN (09:36)
[2021-01-16] MEDS ORDERED: Aspirin 81 MG Tab.Chew PO ONE ×2 (09:38→09:40)
[2021-01-16] MEDS ORDERED: Ondansetron 4 MG/2 ML SDV IVPUSH ONE (09:40)
--- NOTE | 2021-01-16 09:41 | EDM.PDOC ---
ED HPI GENERAL MEDICAL PROBLEM - General Chief Complaint: Respiratory Problem Stated Complaint: BREATHING, AND HEART TROUBLE Time Seen by Provider: 01/16/21 09:22 - History of Present Illness INITIAL COMMENTS - FREE TEXT/NARRATIVE: History of present illness: [] The patient's felt increasing fatigue and shortness of breath sounds the beginning of the month. He went to [place] to have hernia surgery and was told based on his EKG it had to be canceled. Cardiac catheterization was scheduled for today. The [place] non destructive testing engineer canceled today because of issues on their end. The patient feels so fatigued and short of breath that he cannot wait until the rescheduled visit in 4 days. The patient has chest pressure with exertion. His shortness of breath is worse with exertion. He is nauseated as well. Review of systems: As per history of present illness and below otherwise all systems reviewed and negative. Past medical history: As per history of present illness and as reviewed below otherwise noncontributory. Surgical history: As per history of present illness and as reviewed below otherwise noncontributory. Social history: No reported history of drug or alcohol abuse. Family history: As per history of present illness and as reviewed below otherwise noncontributory. Physical exam: Constitutional - well developed, well-nourished and in no acute distress HEENT - normocephalic, no evidence of trauma - external nose and mouth normal - no mass in neck and no JVD - mucosae moist EYES - full EOM, PERRL, no icterus - no evidence of inflammation, injection, or drainage Respiratory - no respiratory distress, equal bilateral expansion, lungs clear to auscultation and no abnormal lung sounds Cardiovascular - Regular Rhythm with S1 and S2 appreciated and no murmur, gallop or rub. GI - abdomen soft without distension or organomegaly - normal bowel sounds - no guard or rebound Musculoskeletal no gross deformity of long bones or joints - no tenderness, swelling or edema Neurologic - Alert and oriented times four - CN II-XII grossly intact - motor sensory and coordination symmetrically normal Psychiatric - appropriate mood and affect with normal thought content but has a facies that reveals his feeling of fatigue. Hematologic - No petechiae or purpura - mucosa appropriate color and sclera not pale - normal nail bed color and refill Integument - no rash or evidence of trauma - normal turgor Diagnostics: [] Therapeutics: [] Impression: [] Plan: [] Definitive disposition and diagnosis as appropriate pending reevaluation and review of above. Chest Pain Score (Numeric/FACES): 5 - Related Data Allergies Allergy/AdvReac Type Severity Reaction Status Date / Time codeine Allergy Nausea and Verified 01/16/21 09:24 Vomiting Home Meds: Home Meds Albuterol Sulfate [Proair Hfa] 2 inhalation PO QID PRN 09/20/15 [History] Aspirin [Adult Low Dose Aspirin EC] 81 mg PO DAILY 09/20/15 [History] Clopidogrel [Plavix] 75 mg PO DAILY 12/20/17 [History] Rosuvastatin [Crestor] 20 mg PO DAILY 12/20/17 [History] Tamsulosin HCl [Flomax] 0.4 mg PO DAILY 12/20/17 [History] Tiotropium [place] [Spiriva Respimat] 2.5 mcg INH QAM 04/01/19 [History] Doxazosin [Cardura] 4 mg PO BEDTIME 01/16/21 [History] Furosemide 20 mg PO DAILY 01/16/21 [History] Isosorbide Mononitrate [Imdur] 30 mg PO DAILY 01/16/21 [History] Nitroglycerin 0.4 mg SL .EVERY 5 MIN PRN 01/16/21 [History] lisinopriL [Lisinopril] 2.5 mg PO DAILY 01/16/21 [History] Past Medical History HEENT History: Reports: None Other HEENT History: has upper denture and lower bridge, has bilateral hearing aides Cardiovascular History: Reports: High Cholesterol, Hypertension Other Cardiovascular History: pericarditis Respiratory History: Reports: Asthma, COPD, SOB Other Respiratory History: rarely uses inhalers, h/o mild sleep apnea Gastrointestinal History: Reports: Colon Polyp, PUD, Other (See Below) Genitourinary History: Reports: Prostate Disorder Other Genitourinary History: hx of BPH Musculoskeletal History: Reports: Back Pain, Chronic Neurological History: Reports: None Psychiatric History: Reports: Anxiety, Depression Endocrine/Metabolic History: Reports: None Hematologic History: Reports: None Immunologic History: Reports: None Oncologic (Cancer) History: Reports: Basal Cell Carcinoma Other Oncologic History: skin cancers removed from lower lip and ears Dermatologic History: Reports: None - Infectious Disease History Infectious Disease History: Reports: Chicken Pox, Measles, Mumps - Past Surgical History Head Surgeries/Procedures: Reports: None HEENT Surgical History: Reports: Other (See Below) Other HEENT Surgeries/Procedures: HX of skin cancer removed x3 on face and ears Cardiovascular Surgical History: Reports: Percutaneous Transluminal Angioplasty Other Cardiovascular Surgeries/Procedures: HX OF ANGIOGRAM, 2 stents Respiratory Surgical History: Reports: None GI Surgical History: Reports: None Male Surgical History: Reports: None Endocrine Surgical History: Reports: None Neurological Surgical History: Reports: None Musculoskeletal Surgical History: Reports: None Other Musculoskeletal Surgeries/Procedures:: hx of 2 back surgeries Oncologic Surgical History: Reports: None Dermatological Surgical History: Reports: Other (See Below) Social & Family History - Family History Family Medical History: No Pertinent Family History - Tobacco Use Tobacco Use Status *Q: Unknown Ever Used Tobacco - Caffeine Use Caffeine Use: Reports: None - Recreational Drug Use Recreational Drug Use: No ED ROS GENERAL - Review of Systems Review Of Systems: Comprehensive ROS is negative, except as noted in HPI. ED EXAM, GENERAL - Physical Exam Exam: See Below Free Text/Narrative:: My physical exam is in the HPI #1 Interpretation EKG Interpretation Comments: EKG sinus rhythm heart rate 58 MA interval 187. QT duration 410 on axis 49. QRS is normal. Nonspecific flattening of the ST segments. When compared to November 2017 no acute change. Impression no obvious acute injury. Course - Vital Signs Text/Narrative:: 10:01 AM patient's chest x-ray shows tortuous or enlarged aorta and increased markings diffusely consistent with some scattered atelectasis. Its not different from the chest x-ray in August. Patient still short of breath but he has an oxygen saturation 95% on room air. After everything was back at 1307 I discussed the case with our anglesmith helper and then with Dr. Rogers saw the emergency physician at [facility]. We cannot really do the pulmonary function studies nor the cardiac catheterization. He will be transferred to the care of the emergency physician who can consult the non destructive testing engineer and decide he would best be the admitting doctor at [facility] where they can do those studies. Patient was stable at the time we began to initiate EMS transfer. Last Recorded V/S: Last Vital Signs Temp 36.7 C 01/16/21 12:23 Pulse 56 L 01/16/21 12:23 Resp 18 01/16/21 12:23 BP 157/83 H 01/16/21 12:23 Pulse Ox 95 01/16/21 12:23 - Orders/Labs/Meds Orders: Active Orders 24 hr Category Date Time Status EKG Documentation Completion [RC] AM Care 01/16/21 09:36 Active Sodium Chloride 0.9% [Saline Flush] Med 01/16/21 09:36 Active 10 ml FLUSH ASDIRECTED PRN Sodium Chloride 0.9% [Saline Flush] Med 01/16/21 09:36 Active 2.5 ml FLUSH ASDIRECTED PRN Saline Lock Insert [OM.PC] Stat Oth 01/16/21 09:36 Ordered Medication Orders Sodium Chloride (Sodium Chloride 0.9% 10 Ml Syringe) 10 ml FLUSH ASDIRECTED PRN PRN Reason: Keep Vein Open Last Admin: 01/16/21 09:49 Dose: 10 ml Documented by: [id number] Sodium Chloride (Sodium Chloride 0.9% 2.5 Ml Syringe) 2.5 ml FLUSH ASDIRECTED PRN PRN Reason: Keep Vein Open Last Admin: 01/16/21 09:49 Dose: 2.5 ml Documented by: [id number] Labs: Laboratory Tests 01/16/21 01/16/21 01/16/21 Range/Units 09:33 09:33 11:45 WBC 5.41 (4.0-11.0) K/uL RBC 4.59 (4.50-5.90) M/uL Hgb 14.8 (13.0-17.0) g/dL Hct 43.4 (38.0-50.0) % MCV 94.6 (80.0-98.0) fL MCH 32.2 H (27.0-32.0) pg MCHC 34.1 (31.0-37.0) g/dL RDW Std Deviation 44.8 (28.0-62.0) fl RDW Coeff of María 13 (11.0-15.0) % Plt Count 146 L (150-400) K/uL MPV 10.70 (7.40-12.00) fL Neut % (Auto) 45.7 L (48.0-80.0) % Lymph % (Auto) 42.1 H (16.0-40.0) % [place] % (Auto) 10.5 (0.0-15.0) % Eos % (Auto) 1.3 (0.0-7.0) % Baso % (Auto) 0.4 (0.0-1.5) % Neut # (Auto) 2.5 (1.4-5.7) K/uL Lymph # (Auto) 2.3 (0.6-2.4) K/uL [place] # (Auto) 0.6 (0.0-0.8) K/uL Eos # (Auto) 0.1 (0.0-0.7) K/uL Baso # (Auto) 0.0 (0.0-0.1) K/uL Nucleated RBC % 0.0 /100WBC Nucleated RBCs # 0 K/uL D-Dimer, Quantitative 0.48 (0.0-0.50) mg/L FEU Sodium 145 (136-148) mmol/L Potassium 3.9 (3.5-5.1) mmol/L Chloride 107 (98-107) mmol/L Carbon Dioxide 25.8 (21.0-32.0) mmol/L BUN 17 (7.0-18.0) mg/dL Creatinine 1.1 (0.8-1.3) mg/dL Est Cr Clr Drug Dosing 60.75 mL/min Estimated GFR (MDRD) > 60.0 ml/min Glucose 96 (74-106) mg/dL Calcium 8.5 (8.5-10.1) mg/dL Magnesium 2.2 (1.8-2.4) mg/dL Total Bilirubin 0.8 (0.2-1.0) mg/dL AST 27 (15-37) IU/L ALT 26 (14-63) IU/L Alkaline Phosphatase 86 (46-116) U/L Troponin I < 0.050 (0.000-0.056) ng/mL Total Protein 6.9 (6.4-8.2) g/dL Albumin 3.5 (3.4-5.0) g/dL Globulin 3.4 (2.6-4.0) g/dL Albumin/Globulin Ratio 1.0 (0.9-1.6) TSH 3rd Generation 2.51 (0.36-3.74) uIU/mL 01/16/21 Range/Units 11:45 WBC (4.0-11.0) K/uL RBC (4.50-5.90) M/uL Hgb (13.0-17.0) g/dL Hct (38.0-50.0) % MCV (80.0-98.0) fL MCH (27.0-32.0) pg MCHC (31.0-37.0) g/dL RDW Std Deviation (28.0-62.0) fl RDW Coeff of María (11.0-15.0) % Plt Count (150-400) K/uL MPV (7.40-12.00) fL Neut % (Auto) (48.0-80.0) % Lymph % (Auto) (16.0-40.0) % [place] % (Auto) (0.0-15.0) % Eos % (Auto) (0.0-7.0) % Baso % (Auto) (0.0-1.5) % Neut # (Auto) (1.4-5.7) K/uL Lymph # (Auto) (0.6-2.4) K/uL [place] # (Auto) (0.0-0.8) K/uL Eos # (Auto) (0.0-0.7) K/uL Baso # (Auto) (0.0-0.1) K/uL Nucleated RBC % /100WBC Nucleated RBCs # K/uL D-Dimer, Quantitative (0.0-0.50) mg/L FEU Sodium (136-148) mmol/L Potassium (3.5-5.1) mmol/L Chloride (98-107) mmol/L Carbon Dioxide (21.0-32.0) mmol/L BUN (7.0-18.0) mg/dL Creatinine (0.8-1.3) mg/dL Est Cr Clr Drug Dosing mL/min Estimated GFR (MDRD) ml/min Glucose (74-106) mg/dL Calcium (8.5-10.1) mg/dL Magnesium (1.8-2.4) mg/dL Total Bilirubin (0.2-1.0) mg/dL AST (15-37) IU/L ALT (14-63) IU/L Alkaline Phosphatase (46-116) U/L Troponin I < 0.050 (0.000-0.056) ng/mL Total Protein (6.4-8.2) g/dL Albumin (3.4-5.0) g/dL Globulin (2.6-4.0) g/dL Albumin/Globulin Ratio (0.9-1.6) TSH 3rd Generation (0.36-3.74) uIU/mL Meds: Medications Generic Name Dose Route Start Last Admin Trade Name Freq PRN Reason Stop Dose Admin Sodium Chloride 10 ml 01/16/21 09:36 01/16/21 09:49 Sodium Chloride 0.9% 10 Ml Syringe FLUSH 10 ml ASDIRECTED PRN Administration Keep Vein Open Sodium Chloride 2.5 ml 01/16/21 09:36 01/16/21 09:49 Sodium Chloride 0.9% 2.5 Ml Syringe FLUSH 2.5 ml ASDIRECTED PRN Administration Keep Vein Open Discontinued Medications Generic Name Dose Route Start Last Admin Trade Name Diiderq PRN Reason Stop Dose Admin Aspirin 243 mg 01/16/21 09:40 01/16/21 09:49 Aspirin 81 Mg Tab.Chew PO 01/16/21 09:41 243 mg ONETIME ONE Administration Ondansetron HCl 4 mg 01/16/21 09:40 01/16/21 09:49 Ondansetron 4 Mg/2 Ml Sdv IVPUSH 01/16/21 09:41 4 mg ONETIME ONE Administration Departure - Departure Time of Disposition: 15:40 Disposition: DC/Tfer to Acute Hospital 02 Condition: Good Clinical Impression: Unstable angina pectoris, Dyspnea on exertion - Discharge Information Referrals: PCP,None [Primary Care Provider] - Forms: ED Department Discharge Sepsis Event Note (ED) - Evaluation Sepsis Screening Result: No Definite Risk - Focused Exam Vital Signs: Vital Signs Temp Pulse Resp BP Pulse Ox 01/16/21 12:23 36.7 C 56 L 18 157/83 H 95 01/16/21 11:32 36.7 C 56 L 20 138/73 97 01/16/21 10:17 53 L 18 158/85 H 98 01/16/21 09:25 36.6 C 59 L 17 175/79 H 99 - My Orders Last 24 Hours: My Active Orders 01/16/21 09:36 EKG Documentation Completion [RC] AM Sodium Chloride 0.9% [Saline Flush] 10 ml FLUSH ASDIRECTED PRN Sodium Chloride 0.9% [Saline Flush] 2.5 ml FLUSH ASDIRECTED PRN Saline Lock Insert [OM.PC] Stat - Assessment/Plan Last 24 Hours: My Active Orders 01/16/21 09:36 EKG Documentation Completion [RC] AM Sodium Chloride 0.9% [Saline Flush] 10 ml FLUSH ASDIRECTED PRN Sodium Chloride 0.9% [Saline Flush] 2.5 ml FLUSH ASDIRECTED PRN Saline Lock Insert [OM.PC] Stat
--- NOTE | 2021-01-16 10:21 | CR ---
INDICATION: Chest pain and shortness of breath TECHNIQUE: Chest 1 views COMPARISON: September 20, 2020 FINDINGS: Cardiovascular and mediastinum: Heart size and vasculature are normal in caliber and appearance. Lungs and pleural spaces: Lungs are clear. No sign of infiltrate or mass. No sign of pleural effusion. No pneumothorax. Bones and soft tissues: No significant findings. IMPRESSION: No acute findings and no significant changes from the prior exam. No specific finding to explain chest pain or shortness of breath. Dictated by Shorty Soto MD @ 01/16/2021 10:19:[address] Shorty Soto @ Jan 16 2021 10:19AM
[2021-01-16 10:24] LABS: BLOOD UREA NITROGEN,BUN 17 mg/dL (7.0-18.0); CARBON DIOXIDE,CO2 25.8 mmol/L (21.0-32.0); CHLORIDE,CL 107 mmol/L (98-107); GLUCOSE RANDOM 96 mg/dL (74-106); POTASSIUM,K 3.9 mmol/L (3.5-5.1); SODIUM,NA 145 mmol/L (136-148)
[2021-01-16] MEDS ORDERED: Nitroglycerin 0.4 MG Tab.SL SL PRN (14:21)
[2021-01-16] MEDS ORDERED: Morphine 2 MG/ML SYRINGE IVPUSH PRN (14:23)
[2021-01-16 14:50] VITALS: PULSE 52
[2021-01-16 15:24] VITALS: BP 167/82
== END 2021-01-16 15:59 ==
LOC: MW.ED 09:18
DX: I20.0 Unstable angina (principal); E78.00 Pure hypercholesterolemia, unspecified; I10 Essential (primary) hypertension; J44.9 Chronic obstructive pulmonary disease, unspecified; N42.9 Disorder of prostate, unspecified; Z88.5 Allergy status to narcotic agent; Z79.82 Long term (current) use of aspirin; Z79.02 Long term (current) use of antithrombotics/antiplatelets; Z79.899 Other long term (current) drug therapy
CPT/HCPCS: 36415; 71045; 80053; 83735; 84443; 84484; 85025; 85379; 93005; 96374; 96375; 99285; A9270; J2270; J2405; 93010; 99284

== ENCOUNTER 2021-05-26 11:00 | Emergency (ER) | payer MEDICARE, BC ==
[2021-05-26] MEDS ORDERED: Sodium Chloride 0.9% 10 ML Syringe FLUSH PRN ×2 (11:05)
[2021-05-26] MEDS ORDERED: Sodium Chloride 0.9% 2.5 ML Syringe FLUSH PRN ×2 (11:05)
[2021-05-26] MEDS ORDERED: Diphtheria,Pertussis(Acell),Tetanus Vaccine 0.5 ML Syringe IM ONE (11:05)
--- NOTE | 2021-05-26 11:09 | EDM.PDOC ---
ED HPI GENERAL MEDICAL PROBLEM - General Chief Complaint: Trauma Stated Complaint: FELL Time Seen by Provider: 05/26/21 11:02 - History of Present Illness INITIAL COMMENTS - FREE TEXT/NARRATIVE: HISTORY AND PHYSICAL: History of present illness: This is a 81-year-old gentleman with a history significant for coronary disease with status post stent placement currently on Plavix and aspirin who presents to the ER today after falling at his shop from a standing position. Patient reports that he was in his shop at home getting ready to shop would for his fireplace when he tripped over an object and landed on his face wearing his glasses. Patient reports he did have a positive LOC. Patient reports that he believes he tripped over an object. Patient denies any recent chest pain, shortness of breath, nausea, vomiting, diarrhea, dysuria, frequency, urgency, abdominal pain. Patient reports that his pain is localized to his forehead where he hit his head. Patient denies any pain to his lower extremities. Patient reports he does have a history of hernia and always has some discomfort in his right inguinal region from his hernia. Patient denies any pain to his upper or lower extremities. Patient has any pain to his neck or back. Patient has any abdominal pain or chest pain. Patient's tetanus status greater than 5 years. Review of systems: As per history of present illness and below otherwise all systems reviewed and negative. Past medical history: As per history of present illness and as reviewed below otherwise noncontributory. Surgical history: As per history of present illness and as reviewed below otherwise noncontributory. Social history: No reported history of drug abuse. Family history: As per history of present illness and as reviewed below otherwise noncontributory. Physical exam: This patient was seen and evaluated during the 2019 SARS-CoV-2 novel coronavirus pandemic period. Community viral transmission is ongoing at time of this encounter and the emergency department is operating under pandemic response procedures. Constitutional: Patient is oriented to person, place, and time. Appears well- developed and well-nourished. No distress. HEENT: Moist mucous membranes Head: Normocephalic and atraumatic Eyes: Right eye exhibits no discharge. Left eye exhibits no discharge. No scleral icterus Neck: Normal range of motion. No tracheal deviation present. Cardiovascular: Normal rate and regular rhythm. Pulmonary: Effort normal, no respiratory distress. Abdominal: No distention Musculoskeletal: Normal range of motion Neurologic: Alert and oriented to person, place and time. Skin: [place], warm and dry. Psychiatric: Normal mood and affect. Behavior is normal. Judgment and thought content normal. Nursing note and vital signs have been reviewed Patient has no C-spine T-spine or L-spine tenderness to palpation. Patient has no left upper or right upper quadrant tenderness to palpation. Patient has no crepitus to palpation to the anterior chest wall. Patient is neurologically intact. Patient does not present with any signs or or symptoms that would be consistent with acute intracranial, intra-abdominal, intrathoracic, or long bone injury. All long bones have been palpated and range of motion been performed and there is no evidence of any acute pathology. Patient does have multiple superficial abrasions to his forehead and nasal bridge. No active bleeding at this time. Patient reports that he was wearing glasses when he fell down hit his forehead. Diagnostics: EKG: As interpreted by ER physician: [place]: Nonspecific ST-T wave abnormalities Normal axis No evidence of ST elevation [place] Normal sinus rhythm heart rate of 54 May 26, 2021 11:25 AM Therapeutics: Dermabond applied to multiple superficial abrasions to his forehead. No discrete laceration was identified. Assessment and plan: 81-year-old gentleman who is currently on Plavix who presents ER today secondary to blunt head trauma with positive LOC. Patient will have labs drawn including CBC, CMP. Patient will have a CT scan of his head and C-spine. Patient will be reevaluated after his labs and CT reports. Patient will need to be updated for his tetanus. CT head and cervical spine were negative for any acute pathology. Patient has no pain/paresthesias with active flexion/rotation of his cervical spine after c- collar was removed. Dermabond has been applied to the superficial abrasions on his forehead and nasal bridge. Hemostasis has been obtained. Patient has no tenderness to palpation to the lower extremities, pelvis was stable to rock. Patient feels comfortable with the plan to be discharged home and rest. Patient has been instructed to take Tylenol as needed for pain and discomfort. Definitive disposition and diagnosis as appropriate pending reevaluation and review of above. forehead Pain Score (Numeric/FACES): 4 - Related Data Allergies Allergy/AdvReac Type Severity Reaction Status Date / Time codeine Allergy Nausea and Verified 05/26/21 11:29 Vomiting Home Meds: Home Meds Albuterol Sulfate [Proair Hfa] 2 inhalation PO QID PRN 09/20/15 [History] Aspirin [Adult Low Dose Aspirin EC] 81 mg PO DAILY 09/20/15 [History] Clopidogrel [Plavix] 75 mg PO DAILY 12/20/17 [History] Rosuvastatin [Crestor] 20 mg PO DAILY 12/20/17 [History] Tamsulosin HCl [Flomax] 0.4 mg PO DAILY 12/20/17 [History] Tiotropium Cyp[place] [Spiriva Respimat] 2.5 mcg INH QAM 04/01/19 [History] Doxazosin [Cardura] 4 mg PO BEDTIME 01/16/21 [History] Furosemide 20 mg PO DAILY 01/16/21 [History] Isosorbide Mononitrate [Imdur] 30 mg PO DAILY 01/16/21 [History] Nitroglycerin 0.4 mg SL .EVERY 5 MIN PRN 01/16/21 [History] lisinopriL [Lisinopril] 2.5 mg PO DAILY 01/16/21 [History] Past Medical History HEENT History: Reports: None Other HEENT History: has upper denture and lower bridge, has bilateral hearing aides Cardiovascular History: Reports: High Cholesterol, Hypertension Other Cardiovascular History: pericarditis Respiratory History: Reports: Asthma, COPD, SOB Other Respiratory History: rarely uses inhalers, h/o mild sleep apnea Gastrointestinal History: Reports: Colon Polyp, PUD, Other (See Below) Genitourinary History: Reports: Prostate Disorder Other Genitourinary History: hx of BPH Musculoskeletal History: Reports: Back Pain, Chronic Neurological History: Reports: None Psychiatric History: Reports: Anxiety, Depression Endocrine/Metabolic History: Reports: None Hematologic History: Reports: None Immunologic History: Reports: None Oncologic (Cancer) History: Reports: Basal Cell Carcinoma Other Oncologic History: skin cancers removed from lower lip and ears Dermatologic History: Reports: None - Infectious Disease History Infectious Disease History: Reports: Chicken Pox, Measles, Mumps - Past Surgical History Head Surgeries/Procedures: Reports: None HEENT Surgical History: Reports: Other (See Below) Other HEENT Surgeries/Procedures: HX of skin cancer removed x3 on face and ears Cardiovascular Surgical History: Reports: Percutaneous Transluminal Angioplasty Other Cardiovascular Surgeries/Procedures: HX OF ANGIOGRAM, 2 stents Respiratory Surgical History: Reports: None GI Surgical History: Reports: None Male Surgical History: Reports: None Endocrine Surgical History: Reports: None Neurological Surgical History: Reports: None Musculoskeletal Surgical History: Reports: None Other Musculoskeletal Surgeries/Procedures:: hx of 2 back surgeries Oncologic Surgical History: Reports: None Dermatological Surgical History: Reports: Other (See Below) Social & Family History - Family History Family Medical History: No Pertinent Family History - Caffeine Use Caffeine Use: Reports: None Review of Systems - Review of Systems Review Of Systems: See Below ED EXAM, GENERAL - Physical Exam Exam: See Below Course - Vital Signs Last Recorded V/S: Last Vital Signs Temp 97.8 F 05/26/21 11:22 Pulse 68 05/26/21 11:22 Resp 18 05/26/21 11:22 BP 185/92 H 05/26/21 11:22 Pulse Ox 96 05/26/21 11:22 - Orders/Labs/Meds Orders: Active Orders 24 hr Category Date Time Status Cervical Spine Precautions [RC] ASDIRECTED Care 05/26/21 11:05 Active Pelvis 1V or 2V [CR] Stat Exams 05/26/21 11:24 Taken COMPREHENSIVE METABOLIC PN,CMP [CHEM] Stat Lab 05/26/21 11:03 Received TYPE AND SCREEN [BBK] Stat Lab 05/26/21 11:05 Stop Req UA W/MICROSCOPIC [URIN] Stat Lab 05/26/21 11:05 Ordered Sodium Chloride 0.9% [Saline Flush] Med 05/26/21 11:05 Active 10 ml FLUSH ASDIRECTED PRN Saline Lock Insert [OM.PC] Stat Oth 05/26/21 11:05 Ordered Medication Orders Sodium Chloride (Sodium Chloride 0.9% 10 Ml Syringe) 10 ml FLUSH ASDIRECTED PRN PRN Reason: Keep Vein Open Last Admin: 05/26/21 11:47 Dose: 10 ml Documented by: ALBA Labs: Laboratory Tests 05/26/21 05/26/21 Range/Units 11:03 11:03 WBC 6.14 (4.0-11.0) K/uL RBC 5.18 (4.50-5.90) M/uL Hgb 16.5 (13.0-17.0) g/dL Hct 47.3 (38.0-50.0) % MCV 91.3 (80.0-98.0) fL MCH 31.9 (27.0-32.0) pg MCHC 34.9 (31.0-37.0) g/dL RDW Std Deviation 43.7 (28.0-62.0) fl RDW Coeff of María 13 (11.0-15.0) % Plt Count 166 (150-400) K/uL MPV 10.60 (7.40-12.00) fL Neut % (Auto) 42.4 L (48.0-80.0) % Lymph % (Auto) 45.4 H (16.0-40.0) % [place] % (Auto) 10.9 (0.0-15.0) % Eos % (Auto) 1.0 (0.0-7.0) % Baso % (Auto) 0.3 (0.0-1.5) % Neut # (Auto) 2.6 (1.4-5.7) K/uL Lymph # (Auto) 2.8 H (0.6-2.4) K/uL [place] # (Auto) 0.7 (0.0-0.8) K/uL Eos # (Auto) 0.1 (0.0-0.7) K/uL Baso # (Auto) 0.0 (0.0-0.1) K/uL Nucleated RBC % 0.0 /100WBC Nucleated RBCs # 0 K/uL INR 0.98 Meds: Medications Generic Name Dose Route Start Last Admin Trade Name Freq PRN Reason Stop Dose Admin Sodium Chloride 10 ml 05/26/21 11:05 05/26/21 11:47 Sodium Chloride 0.9% 10 Ml Syringe FLUSH 10 ml ASDIRECTED PRN Administration Keep Vein Open Discontinued Medications Generic Name Dose Route Start Last Admin Trade Name Freq PRN Reason Stop Dose Admin Diphtheria/Tetanus/Acell Pertussis 0.5 ml 05/26/21 11:05 05/26/21 11:34 Diphtheria,Pertussis(Acell),Tetanus Vaccine 0.5 Ml Syringe IM 05/26/21 11:06 0.5 ml .ONCE ONE Administration Octyl Cyanoacrylate 1 applic 05/26/21 11:43 05/26/21 11:46 Octyl 2-Cyanoacrylate 1 Tube TOP 05/26/21 11:44 1 applic ONETIME ONE Administration Sodium Chloride 2.5 ml 05/26/21 11:05 Sodium Chloride 0.9% 2.5 Ml Syringe FLUSH ASDIRECTED PRN Keep Vein Open Sodium Chloride 10 ml 05/26/21 11:05 Sodium Chloride 0.9% 10 Ml Syringe FLUSH ASDIRECTED PRN Keep Vein Open Sodium Chloride 2.5 ml 05/26/21 11:05 Sodium Chloride 0.9% 2.5 Ml Syringe FLUSH ASDIRECTED PRN Keep Vein Open Departure - Departure Time of Disposition: 12:03 Disposition: Home, Self-Care 01 Condition: Good Clinical Impression: Facial abrasion, Fall in elderly patient Head injury Qualifiers: Encounter type: initial encounter Qualified Code(s): S09.90XA - Unspecified injury of head, initial encounter Concussion Qualifiers: Encounter type: initial encounter Loss of consciousness presence/duration: with LOC of 30 min or less Qualified Code(s): S06.0X1A - Concussion with loss of consciousness of 30 minutes or less, initial encounter - Discharge Information Instructions: Fall Prevention in the Home, Adult, [place], Concussion, Adult, [place]-L[place], Head Injury, Adult, Tissue Adhesive Wound Care, Abrasion Referrals: PCP,None [Primary Care Provider] - Forms: ED Department Discharge Additional Instructions: You were seen and evaluated in the ER today secondary to a head injury that occurred earlier today. The CT scan of your head and neck were both normal. The x-rays of your chest and pelvis did not reveal any significant abnormalities. Your blood tests were all within normal limits. At this time, I feel that you will be safe to be discharged to your home to get plenty rest. You can take acetaminophen 1 g every 6 hours as needed for pain or discomfort. Please make an appointment see your family doctor next week for reevaluation if he has any persistent pain or discomfort. Dermabond has been applied to your forehead which should dissolve on its own within the next 3 to 5 days. The following information is given to patients seen in the emergency department who are being discharged to home. This information is to outline your options for follow-up care. We provide all patients seen in our emergency department with a follow-up referral. The need for follow-up, as well as the timing and circumstances, are variable depending upon the specifics of your emergency department visit. If you don't have a primary care physician on staff, we will provide you with a referral. We always advise you to contact your personal physician following an emergency department visit to inform them of the circumstance of the visit and for follow-up with them and/or the need for any referrals to a consulting specialist. The emergency department will also refer you to a specialist when appropriate. This referral assures that you have the opportunity for follow-up care with a specialist. All of these measure are taken in an effort to provide you with optimal care, which includes your follow-up. Under all circumstances we always encourage you to contact your private physician who remains a resource for coordinating your care. When calling for follow-up care, please make the office aware that this follow-up is from your recent emergency room visit. If for any reason you are refused follow-up, please contact the [facility] Emergency Department at and asked to speak to the emergency department charge nurse. [facility] - [facility] [address] [place] [id number] [facility] [address] [place] [id number] Sepsis Event Note (ED) - Focused Exam Vital Signs: Vital Signs Temp Pulse Resp BP Pulse Ox 05/26/21 11:22 97.8 F 68 18 185/92 H 96
[2021-05-26] MEDS ORDERED: Octyl 2-Cyanoacrylate 1 Tube TOP ONE (11:43)
--- NOTE | 2021-05-26 11:45 | CT ---
INDICATION: Trauma. Fell. TECHNIQUE: CT images of the head were obtained from foramen magnum to vertex without contrast. Axial coronal and sagittal reconstructions are reviewed. FINDINGS: The ventricles are normal in size and configuration. The is no evidence of acute intracranial hemorrhage. There is no mass effect. There is no evidence of focal infarction. No posterior fossa hemorrhage or mass effect. There is localized scalp swelling over the frontal calvarium. No fractures are seen. IMPRESSION: 1. No evidence of acute intracranial hemorrhage or skull fracture. 2. Scalp swelling over the frontal region consistent with recent head trauma. Please note that all CT scans at this facility use dose modulation, iterative reconstruction, and/or weight-based dosing when appropriate to reduce radiation dose to as low as reasonably achievable. Dictated by Alex Martin MD @ 05/26/2021 11:44:20 AM (Electronically Signed)
--- NOTE | 2021-05-26 11:49 | CT ---
INDICATION: Head trauma. Fell. TECHNIQUE: CT images were acquired through the cervical spine. Axial as well as sagittal and coronal reconstructions are reviewed. FINDINGS: Relative straightening of the usual cervical lordosis. 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 Lower cervical spondylosis. No evidence of acute cervical spine fracture. The left no prevertebral soft tissue swelling. At C6-7 disc space narrowing with marginal osteophytes and associated bony foraminal narrowing. At C7-T1 prominent anterior marginal osteophytes. No spinal canal or foraminal bony stenosis. IMPRESSION: 1. No evidence of acute cervical spine fracture or traumatic malalignment. 2. The cervical spondylosis C6-7 and C7-T1 as described. Congenital fusion of C5 and C6. Please note that all CT scans at this facility use dose modulation, iterative reconstruction, and/or weight-based dosing when appropriate to reduce radiation dose to as low as reasonably achievable. Dictated by Alex Martin MD @ 05/26/2021 11:47:46 AM (Electronically Signed)
--- NOTE | 2021-05-26 12:08 | CR ---
Indication: Trauma Technique: Chest 1 view Comparison: January 16, 2021 Findings/Impression: Stable cardiomediastinal silhouette. Lungs are hyperexpanded. No focal infiltrate, effusion, or pneumothorax. Osseous structures are intact. Dictated by Marycarmen Rogers MD @ 05/26/2021 12:06:10 PM (Electronically Signed)
[2021-05-26 12:10] LABS: CARBON DIOXIDE,CO2 25.2 mmol/L (21.0-32.0); POTASSIUM,K 4.4 mmol/L (3.5-5.1)
--- NOTE | 2021-05-26 12:16 | CR ---
INDICATION: Trauma TECHNIQUE: Single view pelvis COMPARISONS: None available. FINDINGS: Femoral heads are well-seated in the acetabula. There is no displaced fracture, dislocation or acute osseous abnormality. There is mild axial loss of joint space bilaterally with marginal osteophyte formation and degenerative changes of the sacroiliac joints. The soft tissues are unremarkable. IMPRESSION: Degenerative changes of the bilateral hips without evidence of acute osseous abnormality. Dictated by Larry Macias MD @ 05/26/2021 12:15:56 PM (Electronically Signed)
[2021-05-26 13:26] VITALS: BP 182/76; PULSE 64
== END 2021-05-26 13:22 | disposition home or self-care (01) ==
LOC: MW.ED 11:00
DX: S06.0X1A Concussion with loss of consciousness of 30 minutes or less, initial encounter (principal); S00.81XA Abrasion of other part of head, initial encounter; S00.31XA Abrasion of nose, initial encounter; E78.00 Pure hypercholesterolemia, unspecified; I10 Essential (primary) hypertension; J44.9 Chronic obstructive pulmonary disease, unspecified; N40.0 Benign prostatic hyperplasia without lower urinary tract symptoms; Z23 Encounter for immunization; Z88.5 Allergy status to narcotic agent; Z79.82 Long term (current) use of aspirin; Z79.02 Long term (current) use of antithrombotics/antiplatelets; Z79.899 Other long term (current) drug therapy; W01.0XXA Fall on same level from slipping, tripping and stumbling without subsequent striking against object, initial encounter; Y92.513 Shop (commercial) as the place of occurrence of the external cause
CPT/HCPCS: 12011; 36415; 70450; 71045; 72125; 72170; 80053; 85025; 85610; 90471; 90715; 93005; 99284; A9270

== ENCOUNTER 2022-04-13 15:11 | Emergency (ER) | payer MEDICARE, BC ==
[2022-04-13] MEDS ORDERED: Clindamycin Phosphate in D5W 600 MG in Premix Bag 1 BAG IV ONE ×2 (17:00)
[2022-04-13 17:45] LABS: CARBON DIOXIDE,CO2 26.9 mmol/L (21.0-32.0); POTASSIUM,K 4.8 mmol/L (3.5-5.1)
[2022-04-13] MEDS ORDERED: Iopamidol 755 Mg/ML 75 ML Bottle IVPUSH STA (18:38)
[2022-04-14 00:59] VITALS: BP 139/71; PULSE 61
== END 2022-04-13 21:05 | disposition home or self-care (01) ==
LOC: MW.ED 15:11
DX: R22.0 Localized swelling, mass and lump, head (principal); E78.00 Pure hypercholesterolemia, unspecified; I10 Essential (primary) hypertension; J44.9 Chronic obstructive pulmonary disease, unspecified; Z88.5 Allergy status to narcotic agent; Z79.82 Long term (current) use of aspirin; Z79.02 Long term (current) use of antithrombotics/antiplatelets; Z79.899 Other long term (current) drug therapy
CPT/HCPCS: 36415; 70491; 80048; 83605; 85025; 87040; 96365; 99283; J3490; 99284

== ENCOUNTER 2023-04-18 11:48 | Inpatient (IN) | payer MEDICARE, BC ==
[2023-04-18] MEDS ORDERED: Sodium Chloride 0.9% 2.5 ML Syringe FLUSH PRN ×2 (11:57→16:12)
[2023-04-18] MEDS ORDERED: Sodium Chloride 0.9% 10 ML Syringe FLUSH PRN ×2 (11:57→16:12)
[2023-04-18] MEDS ORDERED: Sodium Chloride 0.9% 1,000 ML IV ONE (12:11)
[2023-04-18 12:39] LABS: BASOPHILS PERCENT AUTO 0.6 % (0.0-1.5); EOSINOPHILS ABSOLUTE AUTO 0.1 K/uL (0.0-0.7); EOSINOPHILS PERCENT AUTO 2.6 % (0.0-7.0); HEMATOCRIT 45.4 % (38.0-50.0); HEMOGLOBIN 15.2 g/dL (13.0-17.0); LYMPHOCYTES ABSOLUTE AUTO 1.4 K/uL (0.6-2.4); LYMPHOCYTES PERCENT AUTO 40.3 % (16.0-40.0); MEAN CORPUSCULAR HEMOGLOBIN 31.5 pg (27.0-32.0); MEAN CORPUSCULAR HGB CONC 33.5 g/dL (31.0-37.0); MEAN CORPUSCULAR VOLUME 94.2 fL (80.0-98.0); MONOCYTES ABSOLUTE AUTO 0.6 K/uL (0.0-0.8); MONOCYTES PERCENT AUTO 16.2 % (0.0-15.0); NEUTROPHILS ABSOLUTE AUTO 1.4 K/uL (1.4-5.7); NEUTROPHILS PERCENT AUTO 40.3 % (48.0-80.0); NRBC ABSOLUTE 0 K/uL; PLATELET COUNT,PLT 149 K/uL (150-400); RED BLOOD CELL COUNT 4.82 M/uL (4.50-5.90)
[2023-04-18 12:50] LABS: INR 1.02 (0.86-1.11)
[2023-04-18 12:59] LABS: A/G RATIO 0.9 (0.9-1.6); ALANINE AMINOTRANSFERASE,ALT 18 IU/L (14-63); ALBUMIN 3.5 g/dL (3.4-5.0); ALKALINE PHOSPHATASE 104 U/L (46-116); ASPARTATE AMNIOTRANSFERASE,AST 23 IU/L (15-37); BILIRUBIN TOTAL 0.8 mg/dL (0.2-1.0); BLOOD UREA NITROGEN,BUN 18 mg/dL (7.0-18.0); CALCIUM 8.6 mg/dL (8.5-10.1); CHLORIDE,CL 104 mmol/L (98-107); CREATININE 1.2 mg/dL (0.8-1.3); GLUCOSE RANDOM 93 mg/dL (74-106); LIPASE 26 U/L (16-77); MAGNESIUM 2.2 mg/dL (1.8-2.4); POTASSIUM,K 4.4 mmol/L (3.5-5.1); PROTEIN TOTAL,TP 7.4 g/dL (6.4-8.2); SODIUM,NA 139 mmol/L (136-148)
[2023-04-18 13:00] LABS: ESTIMATED GFR 61 mL/min (>60)
[2023-04-18] MEDS ORDERED: Iopamidol 755 MG/ML 500 ML Multipack Bottle IVPUSH STA (13:32)
[2023-04-18] MEDS ORDERED: Ondansetron 4 MG/2 ML SDV IVPUSH PRN (16:12)
[2023-04-18] MEDS ORDERED: Naloxone 0.4 MG/ML SDV IVPUSH PRN (16:12)
[2023-04-18] MEDS ORDERED: Acetaminophen 325 MG Tab PO PRN (16:12)
[2023-04-18] MEDS ORDERED: Morphine 2 MG/ML SYRINGE IVPUSH PRN (16:12)
[2023-04-18] MEDS ORDERED: Sodium Chloride 0.9% 1,000 ML IV SCH (16:15)
[2023-04-18] MEDS ORDERED: Albuterol/Ipratropium 3.0-0.5 MG/3 ML Neb Soln NEB PRN (16:15)
[2023-04-18] MEDS: Vancomycin 125 MG Cap PO SCH ×2 (18:35→23:38)
[2023-04-18] MEDS: Rosuvastatin 10 MG Tab PO SCH (20:38)
[2023-04-18 23:05] LABS: APPEARANCE,URINE CLEAR; BILIRUBIN,URINE NEGATIVE (NEGATIVE); COLOR,URINE YELLOW; GLUCOSE,URINE NEGATIVE (NEGATIVE); KETONES,URINE NEGATIVE (NEGATIVE); LEUKOCYTE ESTERASE,URINE NEGATIVE (NEGATIVE); NITRITE,URINE NEGATIVE (NEGATIVE); OCCULT BLOOD,URINE TRACE-INTACT (NEGATIVE); PROTEIN,URINE NEGATIVE (NEGATIVE); UROBILINOGEN,URINE 0.2 EU/dL (<2.0)
[2023-04-18 23:14] LABS: BACTERIA,URINE RARE (NEGATIVE); EPITHELIAL CELLS,URINE OCCASIONAL (NONE-FEW); RBC,URINE 0-2 (0-2/HPF); WBC,URINE 0-2 (0-5/HPF)
[2023-04-19] MEDS: Vancomycin 125 MG Cap PO SCH (05:05)
[2023-04-19 05:58] LABS: BASOPHILS PERCENT AUTO 0.3 % (0.0-1.5); EOSINOPHILS ABSOLUTE AUTO 0.1 K/uL (0.0-0.7); HEMATOCRIT 39.1 % (38.0-50.0); HEMOGLOBIN 12.9 g/dL (13.0-17.0); LYMPHOCYTES ABSOLUTE AUTO 1.2 K/uL (0.6-2.4); LYMPHOCYTES PERCENT AUTO 41.1 % (16.0-40.0); MEAN CORPUSCULAR HEMOGLOBIN 31.2 pg (27.0-32.0); MEAN CORPUSCULAR VOLUME 94.4 fL (80.0-98.0); MONOCYTES ABSOLUTE AUTO 0.5 K/uL (0.0-0.8); MONOCYTES PERCENT AUTO 17.2 % (0.0-15.0); NEUTROPHILS ABSOLUTE AUTO 1.1 K/uL (1.4-5.7); NEUTROPHILS PERCENT AUTO 38.4 % (48.0-80.0); NRBC ABSOLUTE 0 K/uL; PLATELET COUNT,PLT 144 K/uL (150-400); RED BLOOD CELL COUNT 4.14 M/uL (4.50-5.90); WHITE BLOOD CELL COUNT,WBC 2.97 K/uL (4.0-11.0)
[2023-04-19 06:23] LABS: CALCIUM 7.6 mg/dL (8.5-10.1); CARBON DIOXIDE,CO2 25.4 mmol/L (21.0-32.0); EST CRCL DRUG DOSING (CG) 62.86 mL/min; MAGNESIUM 1.9 mg/dL (1.8-2.4); PHOSPHORUS 2.5 mg/dL (2.6-4.7); POTASSIUM,K 3.6 mmol/L (3.5-5.1)
[2023-04-19] MEDS ORDERED: Albuterol 8 GM Inhaler INH PRN (08:00)
[2023-04-19] MEDS: Aspirin 81 MG Tab.EC PO SCH (09:50)
[2023-04-19] MEDS: Phosphorus #1 250 MG Tab PO SCH ×4 (09:50→23:40)
[2023-04-19] MEDS: Clopidogrel 75 MG Tab PO SCH (09:51)
[2023-04-19] MEDS: Tamsulosin 0.4 MG Cap.ER PO SCH (09:52)
[2023-04-19] MEDS: Heparin Sodium 5,000 Units/ML Vial SUBCUT SCH ×2 (11:18→23:40)
[2023-04-19] MEDS: Vancomycin 25 MG/ML Compounding Kit PO SCH ×3 (12:19→23:40)
[2023-04-19] MEDS ORDERED: Warfarin Sliding Scale PO SCH (14:00)
[2023-04-19] MEDS: Rosuvastatin 10 MG Tab PO SCH (21:41)
[2023-04-20 05:51] LABS: BASOPHILS PERCENT AUTO 0.3 % (0.0-1.5); EOSINOPHILS ABSOLUTE AUTO 0.1 K/uL (0.0-0.7); EOSINOPHILS PERCENT AUTO 2.9 % (0.0-7.0); HEMATOCRIT 38.7 % (38.0-50.0); HEMOGLOBIN 12.9 g/dL (13.0-17.0); LYMPHOCYTES ABSOLUTE AUTO 1.3 K/uL (0.6-2.4); LYMPHOCYTES PERCENT AUTO 39.4 % (16.0-40.0); MEAN CORPUSCULAR HEMOGLOBIN 31.3 pg (27.0-32.0); MEAN CORPUSCULAR HGB CONC 33.3 g/dL (31.0-37.0); MEAN CORPUSCULAR VOLUME 93.9 fL (80.0-98.0); MONOCYTES ABSOLUTE AUTO 0.6 K/uL (0.0-0.8); MONOCYTES PERCENT AUTO 17.6 % (0.0-15.0); NEUTROPHILS ABSOLUTE AUTO 1.4 K/uL (1.4-5.7); NEUTROPHILS PERCENT AUTO 39.8 % (48.0-80.0); NRBC ABSOLUTE 0 K/uL; PLATELET COUNT,PLT 138 K/uL (150-400); RED BLOOD CELL COUNT 4.12 M/uL (4.50-5.90)
[2023-04-20 06:07] LABS: CALCIUM 7.7 mg/dL (8.5-10.1); CARBON DIOXIDE,CO2 26.2 mmol/L (21.0-32.0); EST CRCL DRUG DOSING (CG) 62.86 mL/min; POTASSIUM,K 3.6 mmol/L (3.5-5.1)
[2023-04-20] MEDS: Phosphorus #1 250 MG Tab PO SCH ×3 (07:35→18:01)
[2023-04-20] MEDS: Vancomycin 25 MG/ML Compounding Kit PO SCH ×3 (07:35→18:01)
[2023-04-20] MEDS: Aspirin 81 MG Tab.EC PO SCH (08:00)
[2023-04-20] MEDS: Clopidogrel 75 MG Tab PO SCH (08:00)
[2023-04-20] MEDS: Tamsulosin 0.4 MG Cap.ER PO SCH (08:00)
[2023-04-20] MEDS: Heparin Sodium 5,000 Units/ML Vial SUBCUT SCH ×2 (11:56→22:46)
[2023-04-20] MEDS: Rosuvastatin 10 MG Tab PO SCH (21:36)
[2023-04-21] MEDS: Vancomycin 25 MG/ML Compounding Kit PO SCH ×2 (00:08→05:24)
[2023-04-21] MEDS: Phosphorus #1 250 MG Tab PO SCH ×2 (00:09→05:24)
[2023-04-21] MEDS: Clopidogrel 75 MG Tab PO SCH (08:22)
[2023-04-21] MEDS: Aspirin 81 MG Tab.EC PO SCH (08:22)
[2023-04-21] MEDS: Tamsulosin 0.4 MG Cap.ER PO SCH (08:22)
[2023-04-21 08:28] VITALS: BP 112/62; PULSE 58
[2023-04-21] MEDS: Heparin Sodium 5,000 Units/ML Vial SUBCUT SCH (12:00)
== END 2023-04-21 11:45 | disposition home or self-care (01) | DRG 373 ==
LOC: MW.ED 11:48 → MW.MS 15:49 → UNDOADMIN 16:00 → MW.MS 16:00
PROVIDERS: ADMIT Family Medicine; ATTEND Family Medicine
DX: K52.9 Noninfective gastroenteritis and colitis, unspecified (principal); R53.1 Weakness; E86.0 Dehydration; A04.72 Enterocolitis due to Clostridium difficile, not specified as recurrent; D70.9 Neutropenia, unspecified; I10 Essential (primary) hypertension; I11.0 Hypertensive heart disease with heart failure; I50.9 Heart failure, unspecified; E78.00 Pure hypercholesterolemia, unspecified; E11.9 Type 2 diabetes mellitus without complications; N40.0 Benign prostatic hyperplasia without lower urinary tract symptoms; M54.9 Dorsalgia, unspecified; G89.29 Other chronic pain; F41.9 Anxiety disorder, unspecified; F32.A Depression, unspecified; I25.10 Atherosclerotic heart disease of native coronary artery without angina pectoris; J44.9 Chronic obstructive pulmonary disease, unspecified; I25.2 Old myocardial infarction; Z79.01 Long term (current) use of anticoagulants; Z88.5 Allergy status to narcotic agent; Z79.82 Long term (current) use of aspirin; Z79.899 Other long term (current) drug therapy; Z98.61 Coronary angioplasty status; Z86.79 Personal history of other diseases of the circulatory system; Z87.11 Personal history of peptic ulcer disease
CPT/HCPCS: 36415; 71045; 74177; 80053; 81001; 83605; 83690; 83735; 85025; 85610; 87040 ×2; 87045; 87046 ×2; 87324; 87338; 87449; 87493; 87899; 93005; J3490; J7030; Q9967; 80048; 84100; 93010; 96360; 96361; 99285; 99285-25; A9270-GY; J1644

== ENCOUNTER 2023-07-17 16:19 | Inpatient (IN) | payer MEDICARE, BC ==
[2023-07-17 19:06] LABS: APPEARANCE,URINE CLEAR; BILIRUBIN,URINE NEGATIVE (NEGATIVE); COLOR,URINE YELLOW; GLUCOSE,URINE NEGATIVE (NEGATIVE); KETONES,URINE NEGATIVE (NEGATIVE); LEUKOCYTE ESTERASE,URINE NEGATIVE (NEGATIVE); NITRITE,URINE NEGATIVE (NEGATIVE); OCCULT BLOOD,URINE TRACE-INTACT (NEGATIVE); PROTEIN,URINE NEGATIVE (NEGATIVE); UROBILINOGEN,URINE 0.2 EU/dL (<2.0)
[2023-07-17 19:17] LABS: BACTERIA,URINE 1+ (NEGATIVE); EPITHELIAL CELLS,URINE NOT SEEN (NONE-FEW); MUCUS,URINE LIGHT (NONE-MOD); WBC,URINE 0-2 (0-5/HPF)
[2023-07-17] MEDS ORDERED: Sodium Chloride 0.9% 2.5 ML Syringe FLUSH PRN (19:26)
[2023-07-17] MEDS ORDERED: Albuterol/Ipratropium 3.0-0.5 MG/3 ML Neb Soln NEB PRN (19:26)
[2023-07-17] MEDS ORDERED: Sodium Chloride 0.9% 20 ML SDV IV PRN (19:26)
[2023-07-17] MEDS ORDERED: Sodium Chloride 0.9% 10 ML Syringe FLUSH PRN (19:26)
[2023-07-17] MEDS ORDERED: Ondansetron 4 MG/2 ML SDV IVPUSH PRN (19:26)
[2023-07-17] MEDS ORDERED: Acetaminophen 325 MG Tab PO PRN (19:26)
[2023-07-17] MEDS ORDERED: Polyethylene Glycol 3350 Powder 17 GM Packet PO PRN (19:26)
[2023-07-17 20:05] LABS: LACTIC ACID 0.5 mmol/L (0.4-2.0)
[2023-07-17] MEDS: metroNIDAZOLE/Normal Saline 500 MG in Premix Bag 1 BAG IV SCH (20:20)
[2023-07-17] MEDS: Lactated Ringers 1,000 ML IV SCH (20:24)
[2023-07-18] MEDS ORDERED: Vancomycin 125 MG Cap PO SCH
[2023-07-18] MEDS: Vancomycin 25 MG/ML Compounding Kit PO SCH ×5 (01:22→23:31)
[2023-07-18] MEDS: metroNIDAZOLE/Normal Saline 500 MG in Premix Bag 1 BAG IV SCH ×3 (04:25→20:18)
[2023-07-18 06:14] LABS: BASOPHILS ABSOLUTE AUTO 0.04 K/uL (0.00-0.20); BASOPHILS PERCENT AUTO 1.1 % (0.0-1.0); EOSINOPHILS ABSOLUTE AUTO 0.47 K/uL (0.00-0.45); EOSINOPHILS PERCENT AUTO 13.2 % (0.0-6.0); HEMATOCRIT 34.2 % (42.0-52.0); HEMOGLOBIN 11.9 g/dL (14.0-18.0); LYMPHOCYTES ABSOLUTE AUTO 1.02 K/uL (1.00-4.80); LYMPHOCYTES PERCENT AUTO 28.7 % (24.0-44.0); MEAN CORPUSCULAR HEMOGLOBIN 31.4 pg (28.0-32.0); MEAN CORPUSCULAR HGB CONC 34.8 g/dL (32.0-36.0); MEAN CORPUSCULAR VOLUME 90.2 fL (83.0-99.0); MEAN PLATELET VOLUME 9.2 fL (9.4-12.4); MONOCYTES ABSOLUTE AUTO 0.47 K/uL (0.00-0.80); MONOCYTES PERCENT AUTO 13.2 % (0.0-8.0); NEUTROPHILS ABSOLUTE AUTO 1.55 K/uL (1.80-7.70); NEUTROPHILS PERCENT AUTO 43.8 % (41.0-71.0); PLATELET COUNT,PLT 182 K/uL (150-400); RED BLOOD CELL COUNT 3.79 M/uL (4.52-5.90); WHITE BLOOD CELL COUNT,WBC 3.55 K/uL (3.9-11.3)
[2023-07-18 06:37] LABS: A/G RATIO 0.8 (0.9-1.6); ALBUMIN 2.6 g/dL (3.4-5.0); BILIRUBIN TOTAL 0.4 mg/dL (0.2-1.0); CALCIUM 8.2 mg/dL (8.5-10.1); CREATININE 0.9 mg/dL (0.8-1.3); EST CRCL DRUG DOSING (CG) 64.46 mL/min; POTASSIUM,K 3.8 mmol/L (3.5-5.1)
[2023-07-18] MEDS: Lactated Ringers 1,000 ML IV SCH (08:03)
[2023-07-19] MEDS: metroNIDAZOLE/Normal Saline 500 MG in Premix Bag 1 BAG IV SCH ×2 (03:38→12:51)
[2023-07-19 06:11] LABS: BASOPHILS ABSOLUTE AUTO 0.03 K/uL (0.00-0.20); BASOPHILS PERCENT AUTO 0.9 % (0.0-1.0); EOSINOPHILS ABSOLUTE AUTO 0.43 K/uL (0.00-0.45); EOSINOPHILS PERCENT AUTO 12.2 % (0.0-6.0); HEMATOCRIT 36.6 % (42.0-52.0); HEMOGLOBIN 12.6 g/dL (14.0-18.0); IMMATURE GRAN ABSOLUTE AUTO 0.01 K/uL (0.00-0.05); IMMATURE GRAN PERCENT AUTO 0.3 % (0.0-0.4); LYMPHOCYTES ABSOLUTE AUTO 1.05 K/uL (1.00-4.80); LYMPHOCYTES PERCENT AUTO 29.8 % (24.0-44.0); MEAN CORPUSCULAR HGB CONC 34.4 g/dL (32.0-36.0); MEAN CORPUSCULAR VOLUME 89.9 fL (83.0-99.0); MEAN PLATELET VOLUME 8.9 fL (9.4-12.4); MONOCYTES PERCENT AUTO 11.4 % (0.0-8.0); NEUTROPHILS PERCENT AUTO 45.4 % (41.0-71.0); PLATELET COUNT,PLT 181 K/uL (150-400); RED BLOOD CELL COUNT 4.07 M/uL (4.52-5.90); WHITE BLOOD CELL COUNT,WBC 3.52 K/uL (3.9-11.3)
[2023-07-19] MEDS: Vancomycin 25 MG/ML Compounding Kit PO SCH ×2 (06:20→13:16)
[2023-07-19 06:40] LABS: CALCIUM 8.2 mg/dL (8.5-10.1); EST CRCL DRUG DOSING (CG) 57.2 mL/min; POTASSIUM,K 4.1 mmol/L (3.5-5.1)
[2023-07-19 13:19] VITALS: BP 114/68; PULSE 61
== END 2023-07-19 13:07 | disposition home or self-care (01) | DRG 372 ==
LOC: MW.ED 16:19 → MW.MS 19:07
PROVIDERS: ADMIT Family Medicine; ATTEND Family Medicine
DX: A04.71 Enterocolitis due to Clostridium difficile, recurrent (principal); K56.7 Ileus, unspecified; J44.9 Chronic obstructive pulmonary disease, unspecified; I11.0 Hypertensive heart disease with heart failure; F41.9 Anxiety disorder, unspecified; E11.9 Type 2 diabetes mellitus without complications; I25.10 Atherosclerotic heart disease of native coronary artery without angina pectoris; F32.A Depression, unspecified; G47.33 Obstructive sleep apnea (adult) (pediatric); N40.0 Benign prostatic hyperplasia without lower urinary tract symptoms; E78.00 Pure hypercholesterolemia, unspecified; H91.90 Unspecified hearing loss, unspecified ear; G89.29 Other chronic pain; M54.9 Dorsalgia, unspecified; I50.9 Heart failure, unspecified; Z88.5 Allergy status to narcotic agent; I25.2 Old myocardial infarction; Z95.5 Presence of coronary angioplasty implant and graft; Z86.010 Personal history of colon polyps; Z85.828 Personal history of other malignant neoplasm of skin; Z98.42 Cataract extraction status, left eye; Z98.41 Cataract extraction status, right eye; Z87.11 Personal history of peptic ulcer disease; Z98.890 Other specified postprocedural states; Z79.82 Long term (current) use of aspirin; Z79.899 Other long term (current) drug therapy
CPT/HCPCS: 36415; 74177; 74177-26; 80048; 80053; 81001; 82947; 83605; 83735; 85025; 87324; 87493; 99222; 99232; 99239; 99284; 99285; A9270-GY; J3490; J7120

== ENCOUNTER 2024-04-03 07:01 | Day surgery (SDC) | payer MEDICARE, BC ==
[2024-04-03] MEDS: Lactated Ringers 1,000 ML IV SCH (07:49)
[2024-04-03] MEDS ORDERED: propofoL 50 ML ONE (08:33)
[2024-04-03] MEDS ORDERED: Lidocaine 2% 5 ML SDV ONE (08:33)
[2024-04-03] MEDS ORDERED: Propofol 200 MG/20 ML SDV ONE ×2 (09:02→09:51)
[2024-04-03] MEDS ORDERED: ePHEDrine 50 MG/ML SDV ONE (09:19)
[2024-04-03] MEDS ORDERED: Lactated Ringers 1,000 ML IV SCH (10:15)
[2024-04-03 12:30] VITALS: PULSE 47
[2024-04-03 12:36] VITALS: BP 178/75
== END 2024-04-03 12:30 | disposition home or self-care (01) ==
LOC: MW.SDS 07:01
PROVIDERS: ATTEND Surgery
DX: K29.50 Unspecified chronic gastritis without bleeding (principal); J45.909 Unspecified asthma, uncomplicated; N40.1 Benign prostatic hyperplasia with lower urinary tract symptoms; I25.10 Atherosclerotic heart disease of native coronary artery without angina pectoris; F41.8 Other specified anxiety disorders; K21.9 Gastro-esophageal reflux disease without esophagitis; Z87.891 Personal history of nicotine dependence; Z79.82 Long term (current) use of aspirin; Z79.899 Other long term (current) drug therapy; Z88.5 Allergy status to narcotic agent
CPT/HCPCS: 43239; 45378; J2704; J7120; 00813; 88305; 88342; 99100; J3490

== ENCOUNTER 2024-12-05 17:03 | Emergency (ER) | payer BC, MEDICARE ==
[2024-12-05 17:38] VITALS: BP 179/78; PULSE 57
[2024-12-05] MEDS: Diphtheria,Pertussis(Acell),Tetanus Vaccine 0.5 ML Syringe IM ONE (18:28)
[2024-12-05] MEDS: Acetaminophen/oxyCODONE 325-5 MG Tab PO ONE (18:29)
== END 2024-12-05 19:00 | disposition home or self-care (01) ==
LOC: MW.ED 17:03
DX: S67.21XA Crushing injury of right hand, initial encounter (principal); Z23 Encounter for immunization; I50.9 Heart failure, unspecified; E78.00 Pure hypercholesterolemia, unspecified; Z75.8 Other problems related to medical facilities and other health care; I25.10 Atherosclerotic heart disease of native coronary artery without angina pectoris; Z88.5 Allergy status to narcotic agent; Z79.82 Long term (current) use of aspirin; Z79.51 Long term (current) use of inhaled steroids; Z79.02 Long term (current) use of antithrombotics/antiplatelets; Z79.899 Other long term (current) drug therapy; W22.8XXA Striking against or struck by other objects, initial encounter; Y93.89 Activity, other specified
CPT/HCPCS: 73130; 90471; 90715; 99283; A9270

== ENCOUNTER 2024-12-15 15:54 | Emergency (ER) | payer MEDICARE, BC ==
[2024-12-15] MEDS: Sodium Chloride 0.9% 1,000 ML IV ONE (16:32)
[2024-12-15] MEDS: Acetaminophen 500 MG Tab PO ONE (16:32)
[2024-12-15] MEDS: Ibuprofen 600 MG Tab PO ONE (16:32)
[2024-12-15 16:39] LABS: BASOPHILS ABSOLUTE AUTO 0.03 K/uL (0.00-0.20); BASOPHILS PERCENT AUTO 0.6 % (0.0-1.0); EOSINOPHILS ABSOLUTE AUTO 0.12 K/uL (0.00-0.45); EOSINOPHILS PERCENT AUTO 2.5 % (0.0-6.0); HEMATOCRIT 44.1 % (42.0-52.0); HEMOGLOBIN 15.1 g/dL (14.0-18.0); IMMATURE GRAN ABSOLUTE AUTO 0.01 K/uL (0.00-0.05); IMMATURE GRAN PERCENT AUTO 0.2 % (0.0-0.4); LYMPHOCYTES ABSOLUTE AUTO 1.19 K/uL (1.00-4.80); LYMPHOCYTES PERCENT AUTO 24.7 % (24.0-44.0); MEAN CORPUSCULAR HEMOGLOBIN 31.7 pg (28.0-32.0); MEAN CORPUSCULAR HGB CONC 34.2 g/dL (32.0-36.0); MEAN CORPUSCULAR VOLUME 92.5 fL (83.0-99.0); MEAN PLATELET VOLUME 9.6 fL (9.4-12.4); MONOCYTES ABSOLUTE AUTO 0.76 K/uL (0.00-0.80); MONOCYTES PERCENT AUTO 15.8 % (0.0-8.0); NEUTROPHILS PERCENT AUTO 56.2 % (41.0-71.0); PLATELET COUNT,PLT 164 K/uL (150-400); RED BLOOD CELL COUNT 4.77 M/uL (4.52-5.90); WHITE BLOOD CELL COUNT,WBC 4.81 K/uL (3.9-11.3)
[2024-12-15 17:15] LABS: ALBUMIN 3.7 g/dL (3.4-5.0); BILIRUBIN TOTAL 0.8 mg/dL (0.2-1.0); CALCIUM 8.5 mg/dL (8.5-10.1); CARBON DIOXIDE,CO2 27.5 mmol/L (21.0-32.0); CREATININE 1.4 mg/dL (0.8-1.3); EST CRCL DRUG DOSING (CG) 42.06 mL/min; MAGNESIUM 2.1 mg/dL (1.8-2.4); POTASSIUM,K 3.9 mmol/L (3.5-5.1); PROTEIN TOTAL,TP 7.4 g/dL (6.4-8.2)
[2024-12-15 17:18] LABS: LACTIC ACID 0.9 mmol/L (0.4-2.0)
[2024-12-15] MEDS: VANCOmycin 1 GM in Sodium Chloride 0.9% 250 ML IV ONE (17:31)
[2024-12-15 18:03] LABS: COLOR,URINE ORANGE; GLUCOSE,URINE NEGATIVE (NEGATIVE); KETONES,URINE NEGATIVE (NEGATIVE); LEUKOCYTE ESTERASE,URINE NEGATIVE (NEGATIVE); NITRITE,URINE NEGATIVE (NEGATIVE); OCCULT BLOOD,URINE TRACE-INTACT (NEGATIVE); PH,URINE 5.5 (5.0-8.0); PROTEIN,URINE TRACE mg/dL (NEGATIVE); UROBILINOGEN,URINE 0.2 EU/dL (<2.0)
[2024-12-15 18:15] LABS: BILIRUBIN,URINE SMALL (NEGATIVE)
[2024-12-15 18:16] LABS: APPEARANCE,URINE HAZY
[2024-12-15 18:19] LABS: BACTERIA,URINE FEW (NEGATIVE); EPITHELIAL CELLS,URINE OCCASIONAL (NONE-FEW); MUCUS,URINE FEW (NONE-MOD); RBC,URINE 0-2 (0-2/HPF); WBC,URINE 0-4 (0-5/HPF)
[2024-12-15 19:45] VITALS: BP 158/91; PULSE 63
== END 2024-12-15 20:34 ==
LOC: MW.ED 15:54
DX: L03.113 Cellulitis of right upper limb (principal); I50.9 Heart failure, unspecified; I25.10 Atherosclerotic heart disease of native coronary artery without angina pectoris; I25.2 Old myocardial infarction; E11.9 Type 2 diabetes mellitus without complications; Z95.5 Presence of coronary angioplasty implant and graft; Z86.16 Personal history of COVID-19; Z88.5 Allergy status to narcotic agent; Z79.51 Long term (current) use of inhaled steroids; Z79.82 Long term (current) use of aspirin; Z79.899 Other long term (current) drug therapy
CPT/HCPCS: 36415; 73130; 80053; 81001; 83605; 83690; 83735; 85025; 87040; 87154; 96361; 96365; 99283; A9270; J7030; J7050; 99284

== ENCOUNTER 2025-03-26 12:49 | Inpatient (IN) | payer MEDICARE ==
[2025-03-26] MEDS ORDERED: Sodium Chloride 0.9% 2.5 ML Syringe FLUSH PRN ×2 (13:28→15:50)
[2025-03-26] MEDS ORDERED: Sodium Chloride 0.9% 10 ML Syringe FLUSH PRN ×2 (13:28→15:50)
[2025-03-26 13:53] LABS: BASOPHILS ABSOLUTE AUTO 0.02 K/uL (0.00-0.20); BASOPHILS PERCENT AUTO 0.5 % (0.0-1.0); EOSINOPHILS ABSOLUTE AUTO 0.09 K/uL (0.00-0.45); EOSINOPHILS PERCENT AUTO 2.2 % (0.0-6.0); IMMATURE GRAN ABSOLUTE AUTO 0.01 K/uL (0.00-0.05); IMMATURE GRAN PERCENT AUTO 0.2 % (0.0-0.4); LYMPHOCYTES ABSOLUTE AUTO 1.55 K/uL (1.00-4.80); LYMPHOCYTES PERCENT AUTO 37.5 % (24.0-44.0); MEAN PLATELET VOLUME 9.9 fL (9.4-12.4); MONOCYTES ABSOLUTE AUTO 0.41 K/uL (0.00-0.80); MONOCYTES PERCENT AUTO 9.9 % (0.0-8.0); NEUTROPHILS ABSOLUTE AUTO 2.05 K/uL (1.80-7.70); NEUTROPHILS PERCENT AUTO 49.7 % (41.0-71.0); NRBC ABSOLUTE 0.00 K/uL (0.00-0.02); NRBC PERCENT 0.0 /100WBC (0.0-0.2); PLATELET COUNT,PLT 146 K/uL (150-400); RED BLOOD CELL COUNT 4.35 M/uL (4.52-5.90); WHITE BLOOD CELL COUNT,WBC 4.13 K/uL (3.9-11.3)
[2025-03-26 13:55] LABS: APPEARANCE,URINE CLEAR; GLUCOSE,URINE NEGATIVE (NEGATIVE); OCCULT BLOOD,URINE NEGATIVE (NEGATIVE)
[2025-03-26 14:21] LABS: A/G RATIO 1.2 (0.9-1.6); ALANINE AMINOTRANSFERASE,ALT 30 IU/L (14-63); ASPARTATE AMNIOTRANSFERASE,AST 39 IU/L (15-37); BILIRUBIN TOTAL 0.9 mg/dL (0.2-1.0); BLOOD UREA NITROGEN,BUN 11 mg/dL (7.0-18.0); CARBON DIOXIDE,CO2 25.2 mmol/L (21.0-32.0); CHLORIDE,CL 103 mmol/L (98-107); CREATININE 1.1 mg/dL (0.8-1.3); GLUCOSE RANDOM 91 mg/dL (74-106); POTASSIUM,K 4.2 mmol/L (3.5-5.1); PROTEIN TOTAL,TP 7.1 g/dL (6.4-8.2); SODIUM,NA 138 mmol/L (136-148)
[2025-03-26 14:24] LABS: ESTIMATED GFR 67 mL/min (>60)
[2025-03-26] MEDS: Iopamidol 755 MG/ML 500 ML Multipack Bottle IVPUSH STA (14:49)
[2025-03-26] MEDS ORDERED: Ondansetron 4 MG/2 ML SDV IVPUSH PRN (15:50)
[2025-03-26] MEDS: Ondansetron 4 MG/2 ML SDV IVPUSH ONE (16:12)
[2025-03-26] MEDS ORDERED: Non-Formulary Medication 1 Each (Albuterol 8.5 GM Hfa.Aer.Ad) PO PRN (16:25)
[2025-03-26] MEDS: Lactated Ringers 1,000 ML IV SCH (16:36)
[2025-03-26] MEDS: Pantoprazole 40 MG in Sodium Chloride 0.9% 10 ML IVPUSH SCH (17:52)
[2025-03-27] MEDS: Ketorolac 30 MG/ML SDV IVPUSH PRN (05:28)
[2025-03-27 06:04] LABS: BASOPHILS ABSOLUTE AUTO 0.02 K/uL (0.00-0.20); BASOPHILS PERCENT AUTO 0.5 % (0.0-1.0); EOSINOPHILS ABSOLUTE AUTO 0.12 K/uL (0.00-0.45); EOSINOPHILS PERCENT AUTO 3.2 % (0.0-6.0); IMMATURE GRAN ABSOLUTE AUTO 0.02 K/uL (0.00-0.05); IMMATURE GRAN PERCENT AUTO 0.5 % (0.0-0.4); LYMPHOCYTES ABSOLUTE AUTO 1.50 K/uL (1.00-4.80); LYMPHOCYTES PERCENT AUTO 40.2 % (24.0-44.0); MEAN PLATELET VOLUME 9.6 fL (9.4-12.4); MONOCYTES ABSOLUTE AUTO 0.40 K/uL (0.00-0.80); MONOCYTES PERCENT AUTO 10.7 % (0.0-8.0); NEUTROPHILS ABSOLUTE AUTO 1.67 K/uL (1.80-7.70); NEUTROPHILS PERCENT AUTO 44.9 % (41.0-71.0); NRBC ABSOLUTE 0.00 K/uL (0.00-0.02); NRBC PERCENT 0.0 /100WBC (0.0-0.2); PLATELET COUNT,PLT 121 K/uL (150-400); RED BLOOD CELL COUNT 3.94 M/uL (4.52-5.90); WHITE BLOOD CELL COUNT,WBC 3.73 K/uL (3.9-11.3)
[2025-03-27 06:30] LABS: A/G RATIO 1.1 (0.9-1.6); ALANINE AMINOTRANSFERASE,ALT 23.0 IU/L (14-63); ASPARTATE AMNIOTRANSFERASE,AST 29.0 IU/L (15-37); BILIRUBIN TOTAL 0.6 mg/dL (0.2-1.0); BLOOD UREA NITROGEN,BUN 8.0 mg/dL (7.0-18.0); CARBON DIOXIDE,CO2 28.0 mmol/L (21.0-32.0); CHLORIDE,CL 106.0 mmol/L (98-107); CREATININE 1.1 mg/dL (0.8-1.3); EST CRCL DRUG DOSING (CG) 51.26 mL/min; GLUCOSE RANDOM 100.0 mg/dL (74-106); PHOSPHORUS 2.6 mg/dL (2.6-4.7); POTASSIUM,K 3.9 mmol/L (3.5-5.1); PROTEIN TOTAL,TP 5.7 g/dL (6.4-8.2); SODIUM,NA 140.0 mmol/L (136-148)
[2025-03-27 06:33] LABS: ESTIMATED GFR 67.0 mL/min (>60)
[2025-03-28 06:17] LABS: BASOPHILS ABSOLUTE AUTO 0.02 K/uL (0.00-0.20); BASOPHILS PERCENT AUTO 0.4 % (0.0-1.0); EOSINOPHILS ABSOLUTE AUTO 0.12 K/uL (0.00-0.45); EOSINOPHILS PERCENT AUTO 2.6 % (0.0-6.0); IMMATURE GRAN ABSOLUTE AUTO 0.01 K/uL (0.00-0.05); IMMATURE GRAN PERCENT AUTO 0.2 % (0.0-0.4); LYMPHOCYTES ABSOLUTE AUTO 1.29 K/uL (1.00-4.80); LYMPHOCYTES PERCENT AUTO 28.2 % (24.0-44.0); MEAN PLATELET VOLUME 10.1 fL (9.4-12.4); MONOCYTES ABSOLUTE AUTO 0.45 K/uL (0.00-0.80); MONOCYTES PERCENT AUTO 9.8 % (0.0-8.0); NEUTROPHILS ABSOLUTE AUTO 2.69 K/uL (1.80-7.70); NEUTROPHILS PERCENT AUTO 58.8 % (41.0-71.0); NRBC ABSOLUTE 0.00 K/uL (0.00-0.02); NRBC PERCENT 0.0 /100WBC (0.0-0.2); PLATELET COUNT,PLT 133 K/uL (150-400); RED BLOOD CELL COUNT 3.97 M/uL (4.52-5.90); WHITE BLOOD CELL COUNT,WBC 4.58 K/uL (3.9-11.3)
[2025-03-28 06:48] LABS: A/G RATIO 1.0 (0.9-1.6); ALANINE AMINOTRANSFERASE,ALT 22.0 IU/L (14-63); ASPARTATE AMNIOTRANSFERASE,AST 26.0 IU/L (15-37); BILIRUBIN TOTAL 0.6 mg/dL (0.2-1.0); BLOOD UREA NITROGEN,BUN 5.0 mg/dL (7.0-18.0); CARBON DIOXIDE,CO2 29.7 mmol/L (21.0-32.0); CHLORIDE,CL 108.0 mmol/L (98-107); CREATININE 1.0 mg/dL (0.8-1.3); EST CRCL DRUG DOSING (CG) 57.6 mL/min; GLUCOSE RANDOM 98.0 mg/dL (74-106); PHOSPHORUS 2.2 mg/dL (2.6-4.7); POTASSIUM,K 3.7 mmol/L (3.5-5.1); PROTEIN TOTAL,TP 5.7 g/dL (6.4-8.2); SODIUM,NA 142.0 mmol/L (136-148)
[2025-03-28 07:03] LABS: ESTIMATED GFR 75.0 mL/min (>60)
[2025-03-29 06:20] LABS: BASOPHILS ABSOLUTE AUTO 0.02 K/uL (0.00-0.20); BASOPHILS PERCENT AUTO 0.6 % (0.0-1.0); EOSINOPHILS ABSOLUTE AUTO 0.12 K/uL (0.00-0.45); EOSINOPHILS PERCENT AUTO 3.4 % (0.0-6.0); IMMATURE GRAN ABSOLUTE AUTO 0.00 K/uL (0.00-0.05); IMMATURE GRAN PERCENT AUTO 0.0 % (0.0-0.4); LYMPHOCYTES ABSOLUTE AUTO 1.35 K/uL (1.00-4.80); LYMPHOCYTES PERCENT AUTO 38.6 % (24.0-44.0); MEAN PLATELET VOLUME 10.1 fL (9.4-12.4); MONOCYTES ABSOLUTE AUTO 0.45 K/uL (0.00-0.80); MONOCYTES PERCENT AUTO 12.9 % (0.0-8.0); NEUTROPHILS ABSOLUTE AUTO 1.56 K/uL (1.80-7.70); NEUTROPHILS PERCENT AUTO 44.5 % (41.0-71.0); NRBC ABSOLUTE 0.00 K/uL (0.00-0.02); NRBC PERCENT 0.0 /100WBC (0.0-0.2); PLATELET COUNT,PLT 136 K/uL (150-400); RED BLOOD CELL COUNT 4.01 M/uL (4.52-5.90); WHITE BLOOD CELL COUNT,WBC 3.50 K/uL (3.9-11.3)
[2025-03-29 06:58] LABS: BLOOD UREA NITROGEN,BUN 5.0 mg/dL (7.0-18.0); CARBON DIOXIDE,CO2 28.2 mmol/L (21.0-32.0); CHLORIDE,CL 109.0 mmol/L (98-107); CREATININE 1.0 mg/dL (0.8-1.3); EST CRCL DRUG DOSING (CG) 57.6 mL/min; GLUCOSE RANDOM 92.0 mg/dL (74-106); POTASSIUM,K 3.7 mmol/L (3.5-5.1); SODIUM,NA 143.0 mmol/L (136-148)
[2025-03-29 07:02] LABS: ESTIMATED GFR 75.0 mL/min (>60)
[2025-03-31 06:18] LABS: BASOPHILS ABSOLUTE AUTO 0.02 K/uL (0.00-0.20); BASOPHILS PERCENT AUTO 0.6 % (0.0-1.0); EOSINOPHILS ABSOLUTE AUTO 0.11 K/uL (0.00-0.45); EOSINOPHILS PERCENT AUTO 3.5 % (0.0-6.0); IMMATURE GRAN ABSOLUTE AUTO 0.00 K/uL (0.00-0.05); IMMATURE GRAN PERCENT AUTO 0.0 % (0.0-0.4); LYMPHOCYTES ABSOLUTE AUTO 1.35 K/uL (1.00-4.80); LYMPHOCYTES PERCENT AUTO 43.1 % (24.0-44.0); MEAN PLATELET VOLUME 10.6 fL (9.4-12.4); MONOCYTES ABSOLUTE AUTO 0.40 K/uL (0.00-0.80); MONOCYTES PERCENT AUTO 12.8 % (0.0-8.0); NEUTROPHILS ABSOLUTE AUTO 1.25 K/uL (1.80-7.70); NEUTROPHILS PERCENT AUTO 40.0 % (41.0-71.0); NRBC ABSOLUTE 0.00 K/uL (0.00-0.02); NRBC PERCENT 0.0 /100WBC (0.0-0.2); PLATELET COUNT,PLT 139 K/uL (150-400); RED BLOOD CELL COUNT 4.14 M/uL (4.52-5.90); WHITE BLOOD CELL COUNT,WBC 3.13 K/uL (3.9-11.3)
[2025-03-31 06:39] LABS: A/G RATIO 1.0 (0.9-1.6); ALANINE AMINOTRANSFERASE,ALT 25.0 IU/L (14-63); ASPARTATE AMNIOTRANSFERASE,AST 26.0 IU/L (15-37); BILIRUBIN TOTAL 0.6 mg/dL (0.2-1.0); BLOOD UREA NITROGEN,BUN 12.0 mg/dL (7.0-18.0); CARBON DIOXIDE,CO2 29.1 mmol/L (21.0-32.0); CHLORIDE,CL 107.0 mmol/L (98-107); CREATININE 1.2 mg/dL (0.8-1.3); EST CRCL DRUG DOSING (CG) 47.33 mL/min; GLUCOSE RANDOM 81.0 mg/dL (74-106); POTASSIUM,K 3.8 mmol/L (3.5-5.1); PROTEIN TOTAL,TP 6.2 g/dL (6.4-8.2); SODIUM,NA 141.0 mmol/L (136-148)
[2025-03-31 06:41] LABS: ESTIMATED GFR 60.0 mL/min (>60)
[2025-03-31] MEDS: Lactulose Soln 10 GM/15 ML 15 ML UD Cup PO SCH (14:32)
[2025-03-31] MEDS ORDERED: Lactulose Soln 10 GM/15 ML 15 ML UD Cup PO SCH (21:00)
[2025-04-01 17:22] VITALS: BP 140/72; PULSE 60
== END 2025-04-01 17:00 | disposition home or self-care (01) | DRG 390 ==
LOC: MW.ED 12:49 → MW.MS 16:01
PROVIDERS: ADMIT Internal Medicine; ATTEND Internal Medicine
DX: K56.7 Ileus, unspecified (principal); Z66 Do not resuscitate; I11.0 Hypertensive heart disease with heart failure; H91.90 Unspecified hearing loss, unspecified ear; H54.7 Unspecified visual loss; J44.89 Other specified chronic obstructive pulmonary disease; Z88.5 Allergy status to narcotic agent; Z79.51 Long term (current) use of inhaled steroids; I25.10 Atherosclerotic heart disease of native coronary artery without angina pectoris; E78.00 Pure hypercholesterolemia, unspecified; I50.9 Heart failure, unspecified; J44.9 Chronic obstructive pulmonary disease, unspecified; G47.30 Sleep apnea, unspecified; E11.9 Type 2 diabetes mellitus without complications; E86.0 Dehydration; N40.0 Benign prostatic hyperplasia without lower urinary tract symptoms; M19.90 Unspecified osteoarthritis, unspecified site; F41.9 Anxiety disorder, unspecified; F32.A Depression, unspecified; Z98.49 Cataract extraction status, unspecified eye; Z98.890 Other specified postprocedural states; Z95.5 Presence of coronary angioplasty implant and graft; Z79.82 Long term (current) use of aspirin; Z79.899 Other long term (current) drug therapy; Z88.8 Allergy status to other drugs, medicaments and biological substances
CPT/HCPCS: 36415; 74177; 80053; 81003; 83690; 85025; 99285; Q9967; 80048; 82947; 83605; 83735; 84100; 99284; A9270-GY; J1650; J1885; J2270; J2405; J2470; J2765; J3490; J7120